=== PATIENT | male | born 1960 | race Caucasian/White ===

== ENCOUNTER 2019-04-25 17:46 | Emergency (ER) | payer MEDICAID, SELFPAY ==
[2019-04-25] VITALS (7 sets, daily range): BP systolic 106–170; BP diastolic 58–89; PULSE 77–93; RESP 16–20; TEMP 36.6–37.3; O2SAT 91–96; BMI 20.3
--- NOTE | 2019-04-25 17:53 | ED_ITS ---
Entered by Janiya Gurrola, acting as scribe for Daysi Lama MD HPI - Chest Pain General: Chief Complaint: Chest Pain Stated Complaint: CHEST PAIN Time Seen by Provider: 04/25/19 17:52 Source: patient, EMS and RN notes reviewed Mode of arrival: EMS Limitations: no limitations History of Present Illness: HPI narrative: chest pain, radiates to shoulder bl zachariah, if he lays to much it makes his shoulder hurt, when he gets up he gets dizzy, has had aortic heart valve replaced in 2019 up through groin, does not take blood thinners, hurts with movement complaint: chest pain Pertinent past history: other (CHF, ventricular fibrillation, cardiomyopathy, HTN) Onset (ago): day(s) (last night) Timing of current episode: episodic and still present Prior episodes: Yes Onset: during rest and during exertion Pain location: substernal and other (L shoulder) Pain radiation: left shoulder Severity: mild Quality: sharp Relieving factors: rest Exacerbating factors: exertion Associated symptoms: Reports no associated symptoms; Deny abdominal pain, diaphoresis, dyspnea, fever(s), nausea or vomiting Treatment prior to arrival: none Risk Factors: Coronary artery disease risk factors: hypertension Thoracic aortic dissection risk factors: none Review of Systems Const: Denies: fever, chills, change in appetite, night sweats or diaphoresis Eyes: Denies: change in vision ENMT: Denies: throat pain or ear pain Card: Denies: swelling of feet/ankles, shortness of breath on exertion or shortness of breath when lying down Resp: Denies: shortness of breath or productive cough GI: Denies: abdominal pain, nausea, vomiting, diarrhea or constipation : Denies: flank pain Musc: Denies: back pain Skin/Breast: Denies: rash Neuro: Denies: headache, numbness in extremities or weakness in extremities Psych: Denies: depression Endo: Denies: excessive thirst Kiran/Lymph: Denies: easy bruising [facility] ED PFSH: Medical History (Updated 04/25/19 @ 21:27 by Daysi Lama MD) Abnormal liver enzymes Etiology of the elevated liver enzyme is not clear. Patient has a history of alcohol abuse. Cardiomyopathy LVEF was 45% in December 2018- improved from 25% in July of 2018 Congestive heart failure Patient was recently seen by Dr. Phillip and the Atenolol dosing was decreased to 200mg daily. He has a significant cardiac history. He denies chest pain, dyspnea or other cardiac symptoms. Essential hypertension Patient is currently controlled with blood pressure medications. He continues under the care of [facility]. H/O reduction of closed fracture right wrist Influenza vaccine needed Patient is higher risk for influenza and needs vaccine. Ventricular fibrillation Because of his elevated liver enzymes, it was decided to keep him on amiodarone 200 mg p.o. daily. Vitamin D deficiency Surgical History (Updated 04/03/19 @ 05:02 by JOSE DAVID Kiran) Aortic valve replaced The most recent echocardiogram was done on 12/12/2018. The findings are as follows. Normal LV size with a diminished ejection fraction of 45%. Moderate concentric left ventricular hypertrophy. Wall motion abnormalities as mentioned above. Type I diastolic dysfunction. The bio prosthetic valve at the aortic position appears to be well-seated. The peak velocity across the aortic valve is 2.3 meter per second with a peak gradient of 22 and a mean gradient of 10 mmHg.The valve area was calculated to be 1.06 cm squared. Trace of mitral valve regurgitation. There is no pericardial effusion. H/O right wrist surgery History of aortic valve replacement Social History Smoking and tobacco status: former smoker Alcohol intake: current Alcohol intake frequency: 3 or more drinks per day Alcohol type: beer Marital status: Single Physical Exam Const: COMMON NORMALS: no apparent distress, oriented x3 and alert GENERAL APPEARANCE: cooperative and well developed; not in distress and not diaphoretic ORIENTATION/CONSCIOUSNESS: Yes awake, Yes oriented to person, Yes oriented to place and Yes oriented to time HENMT: COMMON NORMALS: normocephalic, head/scalp atraumatic, external ears normal, external nose normal and moist oral mucous membranes HEAD & SCALP: normocephalic and atraumatic FACE & SINUS: normal facial exam; no facial tenderness NOSE: external nose normal EXTERNAL EAR: Yes external ears normal MOUTH: oral and palatal mucosa normal, lip normal and tongue n ormal TEETH & GINGIVA: no abnormal tooth and associated gingiva THROAT: posterior oropharynx normal and uvula midline Eye: COMMON NORMALS: PERRL and EOMs intact bilaterally PUPIL: Yes PERRL Neck/C-Spine: COMMON NORMALS: full ROM, supple and no JVD GENERAL: Yes normal visual inspection and Yes trachea midline CERVICAL SPINE: No cervical spine tenderness Lymph: LYMPHATIC: no lymphadenopathy noted Chest: COMMONS NORMALS: inspection of chest normal Resp: COMMON NORMALS: normal respiratory effort, no use of accessory muscles and clear to auscultation bilaterally EFFORT & INSPECTION: Yes able to speak in complete sentences and Yes symmetric chest movement AUSCULTATION: clear to auscultation bilaterally Cardio: COMMON NORMALS: no JVD, regular rate, regular rhythm, no gallops and peripheral pulses 2+ throughout RATE: regular rate RHYTHM: regular rhythm HEART SOUNDS: murmur systolic (2/6) Location: left sternal border and right sternal border PERIPHERAL PULSES: pulses 2+ throughout GI: COMMON NORMALS: normal to inspection, nondistended, normoactive bowel sounds, soft to palpation and non-tender PALPATION: Yes soft Back/Pelvis: COMMON NORMALS: thoracic and lumbar spine normal to inspection and thoraco-lumbar ROM normal Extremity: COMMON NORMALS: normal to inspection, full ROM and normal capillary refill Neuro: COMMON NORMALS: oriented x3, CN's II-XII intact bilaterally, moves all extremities, no focal motor deficits and no sensory deficits noted SENSORIUM/ORIENTATION: Yes alert, Yes oriented to person, Yes oriented to place and Yes oriented to time Psych: COMMON NORMALS: mental status grossly normal, thought process normal, cooperative, affect normal, speech normal and activity/motor behavior normal SPEECH: Yes normal speech THOUGHT PROCESS: normal thought process Skin: COMMON NORMALS: no rashes or lesions noted and skin turgor normal GENERAL SKIN EXAM: no rashes or lesions noted and turgor normal Course ED course: Patient with aortic valve replacement recently. CT angio for aorta was positive for dilated aorta and aortic root - but no sign of dissection. EKGs unchanged from prior. Delta troponin neg. Probably musculoskeletal pain and shoulder pain - he seems safe for discharge and outpatient [facility]. Vital Signs: Vital signs: Vital Signs Temperature 99.1 F 04/25/19 20:00 Pulse Rate 81 04/25/19 21:30 Respiratory Rate 16 04/25/19 21:30 Blood Pressure 106/89 04/25/19 21:30 Pulse Oximetry 93 04/25/19 21:30 MDM - Chest Pain Lab Data: Labs: Lab Results 04/25/19 04/25/19 04/25/19 Range/Units 18:20 18:20 18:20 WBC 6.4 (4.0-10.0) 10^3/ uL RBC 4.83 (4.1-5.3) 10^6/u L Hgb 13.4 (11.7-16.6) g/dL Hct 39.5 L (42.0-52.0) % MCV 81.8 (80-94) fL MCH 27.7 L (28.0-34.0) pg MCHC 33.9 (30.0-36.0) g/dL RDW 15.3 H (12.1-15.1) % Plt Count 109 L (130-400) 10^3/c mm MPV 9.9 (7.4-10.4) fL Neut % (Auto) 63.5 % Lymph % (Auto) 25.5 % [place] % (Auto) 10.6 % Eos % (Auto) 0.2 % Baso % (Auto) 0.0 % Neut # (Auto) 4.1 (1.8-7.7) 10^3/u L Lymph # (Auto) 1.6 (0.8-4.8) 10^3/u L [place] # (Auto) 0.7 (0.2-0.9) 10^3/u L Eos # (Auto) 0.0 (0.0-0.8) 10^3/u L Baso # (Auto) 0.0 (0.0-0.1) 10^3/u L Nucleated RBC % (a uto) 0 % Nucleated RBCs # 0.0 /100WBC PT 13.50 H (10.5-13.3) SECO NDS INR 1.00 (0.8-1.2) Sodium 131 L (136-145) mmol/L Potassium 4.0 (3.5-5.1) mmol/L Chloride 94 L (98-107) mmol/L Carbon Dioxide 24 (22-29) mmol/L Anion Gap 17.0 (5-19) BUN 13 (6-20) mg/dL Creatinine 0.9 (0.7-1.2) mg/dL GFR Calculation 86.4 L (90-130) mL/min Glucose 96 (65-115) mg/dL Calcium 9.4 (8.5-10.5) mg/dL Total Bilirubin 0.6 (0.15-1.2) mg/dL AST 81 H (0-40) U/L ALT 86 H (0-41) U/L Alkaline Phosphata se 109 (40-130) IU/L Troponin T Baselin e (0-15) ng/mL Troponin T 120 Min [place] (0-15) ng/mL Delta Troponin T (0-10) ABS# NT-Pro-B Natriuret Pep 235 H (0-125) pg/mL Total Protein 8.1 (6.6-8.7) g/dL Albumin 4.2 (3.5-5.2) g/dL Globulin 3.9 (1.3-4.6) g/dL Urine Color (Yellow) Urine Appearance (CLEAR) Urine pH (5-7) Ur Specific Gravit y (1.005-1.030) Urine Protein (Negative) Urine Glucose (UA) (Normal) Urine Ketones (Negative) Urine Occult Blood (Negative) Urine Nitrate (Negative) Urine Bilirubin (NEGATIVE) Urine Urobilinogen (Negative) mg/dL Ur Leukocyte Yee ase (Negative) 04/25/19 04/25/19 04/25/19 Range/Units 18:20 18:35 19:48 WBC (4.0-10.0) 10^3/ uL RBC (4.1-5.3) 10^6/u L Hgb (11.7-16.6) g/dL Hct (42.0-52.0) % MCV (80-94) fL MCH (28.0-34.0) pg MCHC (30.0-36.0) g/dL RDW (12.1-15.1) % Plt Count (130-400) 10^3/c mm MPV (7.4-10.4) fL Neut % (Auto) % Lymph % (Auto) % [place] % (Auto) % Eos % (Auto) % Baso % (Auto) % Neut # (Auto) (1.8-7.7) 10^3/u L Lymph # (Auto) (0.8-4.8) 10^3/u L [place] # (Auto) (0.2-0.9) 10^3/u L Eos # (Auto) (0.0-0.8) 10^3/u L Baso # (Auto) (0.0-0.1) 10^3/u L Nucleated RBC % (a uto) % Nucleated RBCs # /100WBC PT (10.5-13.3) SECO NDS INR (0.8-1.2) Sodium (136-145) mmol/L Potassium (3.5-5.1) mmol/L Chloride (98-107) mmol/L Carbon Dioxide (22-29) mmol/L Anion Gap (5-19) BUN (6-20) mg/dL Creatinine (0.7-1.2) mg/dL GFR Calculation (90-130) mL/min Glucose (65-115) mg/dL Calcium (8.5-10.5) mg/dL Total Bilirubin (0.15-1.2) mg/dL AST (0-40) U/L ALT (0-41) U/L Alkaline Phosphata se (40-130) IU/L Troponin T Baselin e 8 (0-15) ng/mL Troponin T 120 Min [place] 8.38 (0-15) ng/mL Delta Troponin T 0.38 (0-10) ABS# NT-Pro-B Natriuret Pep (0-125) pg/mL Total Protein (6.6-8.7) g/dL Albumin (3.5-5.2) g/dL Globulin (1.3-4.6) g/dL Urine Color Yellow (Yellow) Urine Appearance Clear (CLEAR) Urine pH 7 (5-7) Ur Specific Gravit y 1.000 L (1.005-1.030) Urine Protein Neg (Negative) Urine Glucose (UA) Norm (Normal) Urine Ketones Negative (Negative) Urine Occult Blood Neg (Negative) Urine Nitrate Negative (Negative) Urine Bilirubin Neg (NEGATIVE) Urine Urobilinogen Norm (Negative) mg/dL Ur Leukocyte Yee ase Negative (Negative) Imaging Data^: CTA Chest: Radiologist's impression: [address] [address] [address] Scan Report Signed Patient: Manuel Moreno Jimi #: [id number] : 1960Acct#:[id number] Age/Sex: 59 / MADM Date: 04/25/19 Loc: [facility]/Bed: Attending Dr: Ordering Provider/Ordering MD: Daysi Lama MD Date of Service: 04/25/19 Procedure(s): CT angio chest 18297 Accession Number(s): [id number] Report Number: [id number] PROCEDURE INFORMATION: Exam: CT Angiography Chest Without And With Contrast Exam date and time: 04/25/2019 7:42 PM Age: 59 years old Clinical indication: Prior surgery; Surgery date: 6+ months; Surgery type: Valve; Patient HX: C/O intermittent back/l shoulder pain since last night; Additional info: History of aortic valve replaced, upper back pain TECHNIQUE: Imaging protocol: Computed tomographic angiography of the chest without and with intravenous contrast. 3D rendering: MIP and/or 3D reconstructed images were created by the technologist. Total DLP: 889.7 mGy-cm Radiation optimization: All CT scans at this facility use at least one of these dose optimization techniques: automated exposure control; mA and/or kV adjustment per patient size (includes targeted exams where dose is matched to clinical indication); or iterative reconstruction. Contrast material: OMNI 350; Contrast volume: 95 ml; Contrast route: 18G; COMPARISON: CR XR chest 1V portable [id number] 04/25/2019 6:08 PM FINDINGS: Pulmonary arteries: Normal. No pulmonary emboli. Great vessels off aortic arch: Calcification of the thoracic aorta and/or great vessels consistent with atherosclerotic vessel disease. Aorta: 4.2 cm ascending aortic aneurysm without rupture. Dilated 4.9 cm aortic root with aortic valve replacement. Aortic diameters are measured on the coronal images. CTA with contrast is more sensitive for subtle aortic leak/dissection. Lungs: Unremarkable. No consolidation. No masses. Pleural space: Unremarkable. No pneumothorax. No pleural effusion. Heart: Severe calcified coronary artery disease. Lymph nodes: Unremarkable. No enlarged lymph nodes. Bones/joints: Stable sternotomy. Soft tissues: Unremarkable. CT/CT angio chest [id number] IMPRESSION: 1. 4.2 cm ascending aortic aneurysm without rupture. 2. Dilated 4.9 cm aortic root with aortic valve replacement. 3. CTA with contrast is more sensitive for subtle aortic leak/dissection. 4. Severe calcified coronary artery disease. Radiation Dose CTDIVOL = (mGy): DLP = 889.7 (mGy-cm) Dictated By:Celestino Avelar MD Signed By:Celestino Avelar MDSigned Date/Time:04/25/192046 DD/ EKG Data^: EKG 1: EKG interpretation date: 04/25/19 EKG interpretation time: 18:02 Interpretation: Rate 76, sinus rhythm - IVCD with QRS 114, ST deviation, and T wave inversion - very similar to recent prior from january Discharge Plan Discharge Patient Disposition: Home, Self-Care Clinical Impression: Acute left-sided thoracic back pain, Aortic dilatation Condition: Stable Prescriptions: No Action nitroglycerin [Nitrostat] 0.4 mg tablet, sublingual 0.4 mg SUBLINGUAL Q5M PRNRF: 0 aspirin 81 mg tablet,delayed release (DR/EC) 81 mg PO DAILY RF: 0 amiodarone 200 mg tablet 200 mg PO DAILY 30 Days Qty: 30 RF: 5 potassium chloride [Klor-Con M20] 20 mEq tablet,ER particles/crystals 20 meq PO DAILY 30 Days Qty: 30 RF: 0 magnesium oxide 500 mg tablet 400 mg PO BID 30 Days Qty: 30 RF: 5 lisinopril 5 mg tablet 5 mg PO QDAY 30 Days Qty: 30 RF: 5 amlodipine 10 mg tablet 10 mg PO DAILY 30 Days Qty: 30 RF: 5 furosemide [Lasix] 40 mg tablet 20 mg PO BID 30 Days Qty: 30 RF: 0 Discharge Orders: Discharge Order (Routine); Ordered 04/25/19 Ordered By: Daysi Lama Referrals: Aziza Bob, CANDY POLISHER [Primary Care Provider] - Patient Instructions: Back Pain (ED) Activity Restrictions/Additional Instructions: Please follow up with Dr. Phillip to make sure that he has seen the CT results from [facility]. Rest and return to the ED if worsening back pain, chest pain, shortness of breath or any other new or concerning symptoms. Interventions: ED Discharge Assessment Last Done: 04/25/19 21:39 Discharge Date/Time: 04/25/19 21:39 Coding Level of Care Code ED Women'S Soccer Coach for Chg Fwd Exam Comprehensive The documentation recorded by the Galileo richter Valerie R, accurately reflects the service I personally performed and the decisions made by Daina back Kathryn L, MD
--- NOTE | 2019-04-25 17:58 | ECG_ITS ---
Measurements Intervals [place] Rate: 76 P: 1 DE: 180 QRS: -15 QRSD: 114 T: 140 QT: 384 QTc: 434 SINUS RHYTHM MODERATE INTRAVENTRICULAR CONDUCTION DELAY [110+ ms QRS DURATION] ST DEVIATION AND MODERATE T-WAVE ABNORMALITY, CONSIDER LATERAL ISCHEMIA [-0.1+ mV T WAVE IN I/aVL/V5/V6] INTERPRETATION BASED ON A DEFAULT AGE OF 40 YEARS Compared to ECG 02/05/2019 17:31:30 There is significant change. Electronically Signed On 04-25-2019 20:49:20 LATIN AMERICAN STUDIES PROFESSOR by Akosua Lo M.D. [email or web address]
--- NOTE | 2019-04-25 17:58 | XR_ITS ---
WS: [id number] XR chest 1V portable [id number] REASON FOR EXAM: chest pain FINDINGS: Previous sternotomy changes. The heart is not grossly enlarged. There is no pneumonia, pleural effusion, pulmonary edema, or mass effect. XR/XR chest 1V portable [id number] IMPRESSION: No acute findings. Previous sternotomy changes.
[2019-04-25 18:34] LABS: Eosinophils % 0.2 %; Hematocrit 39.5 % (42.0-52.0); Hemoglobin 13.4 g/dL (11.7-16.6); Lymphocytes # 1.6 10^3/uL (0.8-4.8); Lymphocytes % 25.5 %; Mean Corpuscular HGB Conc 33.9 g/dL (30.0-36.0); Mean Corpuscular Hemoglobin 27.7 pg (28.0-34.0); Mean Corpuscular Volume 81.8 fL (80-94); Mean Platelet Volume 9.9 fL (7.4-10.4); Monocytes # 0.7 10^3/uL (0.2-0.9); Monocytes % 10.6 %; Neutrophils # 4.1 10^3/uL (1.8-7.7); Neutrophils % 63.5 %; Nucleated Red Blood Cells % 0 %; Platelet Count 109 10^3/cmm (130-400); Red Blood Count 4.83 10^6/uL (4.1-5.3); Red Cell Distribution Width 15.3 % (12.1-15.1); White Blood Count 6.4 10^3/uL (4.0-10.0)
[2019-04-25 18:46] LABS: Add Urine Microscopic? NO
[2019-04-25 18:54] LABS: Bilirubin Urine Neg (NEGATIVE); Blood Urine Neg (Negative); Glucose Urine UA Norm (Normal); Ketones Urine Negative (Negative); Leukocyte Esterase Urine Negative (Negative); Nitrate Urine Negative (Negative); Protein Urine Neg (Negative); Urine Appearance Clear (CLEAR); Urine Color Yellow (Yellow); Urobilinogen Urine Norm (Negative); pH Urine 7 (5-7)
[2019-04-25 19:00] LABS: Troponin(5th) Baseline 8 ng/mL (0-15)
[2019-04-25 19:08] LABS: Alanine Aminotransferase 86 U/L (0-41); Albumin Level 4.2 g/dL (3.5-5.2); Alkaline Phosphatase 109 IU/L (40-130); Aspartate Amino Transferase 81 U/L (0-40); Blood Urea Nitrogen 13 mg/dL (6-20); Calcium 9.4 mg/dL (8.5-10.5); Carbon Dioxide 24 mmol/L (22-29); Chloride 94 mmol/L (98-107); Globulin 3.9 g/dL (1.3-4.6); Glomerular Filtration Rate 86.4 mL/min (90-130); Glucose 96 mg/dL (65-115); NT Pro B Type Natriuretic Pept 235 pg/mL (0-125); Sodium 131 mmol/L (136-145); Total Bilirubin 0.6 mg/dL (0.15-1.2); Total Protein 8.1 g/dL (6.6-8.7)
--- NOTE | 2019-04-25 19:08 | PC.NURSE ---
Introduced self to patient and initiated vital signs. Pt is A&O x 4 and agreeable. Pt states that the reason for the ER visit today is due to left shoulder pain. Pt states that at present, shoulder pain in 1/10, but has 5/10 left shoulder blade pain. Pt states that pain presented last night and progressed over the night. Reassured patient of needs and will continue to monitor.
--- NOTE | 2019-04-25 19:26 | CTR_ITS ---
PROCEDURE INFORMATION: Exam: CT Angiography Chest Without And With Contrast Exam date and time: 04/25/2019 7:42 PM Age: 59 years old Clinical indication: Prior surgery; Surgery date: 6+ months; Surgery type: Valve; Patient HX: C/O intermittent back/l shoulder pain since last night; Additional info: History of aortic valve replaced, upper back pain TECHNIQUE: Imaging protocol: Computed tomographic angiography of the chest without and with intravenous contrast. 3D rendering: MIP and/or 3D reconstructed images were created by the technologist. Total DLP: 889.7 mGy-cm Radiation optimization: All CT scans at this facility use at least one of these dose optimization techniques: automated exposure control; mA and/or kV adjustment per patient size (includes targeted exams where dose is matched to clinical indication); or iterative reconstruction. Contrast material: OMNI 350; Contrast volume: 95 ml; Contrast route: 18G; COMPARISON: [employer] XR chest 1V portable [id number] 04/25/2019 6:08 PM FINDINGS: Pulmonary arteries: Normal. No pulmonary emboli. Great vessels off aortic arch: Calcification of the thoracic aorta and/or great vessels consistent with atherosclerotic vessel disease. Aorta: 4.2 cm ascending aortic aneurysm without rupture. Dilated 4.9 cm aortic root with aortic valve replacement. Aortic diameters are measured on the coronal images. CTA with contrast is more sensitive for subtle aortic leak/dissection. Lungs: Unremarkable. No consolidation. No masses. Pleural space: Unremarkable. No pneumothorax. No pleural effusion. Heart: Severe calcified coronary artery disease. Lymph nodes: Unremarkable. No enlarged lymph nodes. Bones/joints: Stable sternotomy. Soft tissues: Unremarkable. CT/CT angio chest [id number] IMPRESSION: 1. 4.2 cm ascending aortic aneurysm without rupture. 2. Dilated 4.9 cm aortic root with aortic valve replacement. 3. CTA with contrast is more sensitive for subtle aortic leak/dissection. 4. Severe calcified coronary artery disease. Radiation Dose CTDIVOL = (mGy): DLP = 889.7 (mGy-cm)
--- NOTE | 2019-04-25 19:58 | ECG_ITS ---
Measurements Intervals [place] Rate: 82 P: 26 NV: 202 QRS: -5 QRSD: 114 T: 156 QT: 378 QTc: 442 SINUS RHYTHM MODERATE INTRAVENTRICULAR CONDUCTION DELAY [110+ ms QRS DURATION] ST DEVIATION AND MODERATE T-WAVE ABNORMALITY, CONSIDER LATERAL ISCHEMIA [-0.1+ mV T WAVE IN I/aVL/V5/V6] INTERPRETATION BASED ON A DEFAULT AGE OF 40 YEARS Compared to ECG 02/05/2019 17:31:30 Intraventricular conduction delay now present T-wave abnormality now present Possible ischemia now present Left ventricular hypertrophy no longer present ST (T wave) deviation no longer present Myocardial infarct finding no longer present Electronically Signed On 04-25-2019 20:52:27 INTERNAL CARVER by Akosua Lo M.D. [email or web address]
[2019-04-25] MEDS: iohexol 350 mg/mL 100 mL Btl IV (20:27)
[2019-04-25 20:41] LABS: Troponin 5 2HR 8.38 ng/mL (0-15); Troponin 5 2HR Delta 0.38 ABS# (0-10)
--- NOTE | 2019-04-30 10:50 | DCPLANNER ---
assistant food service manager had message to schedule a follow up appointment for patient with [facility]. assistant food service manager called [facility], spoke with Keli, a followup appointment was scheduled for Monday, May 13, 2019 at 10:[address] Phillip. Clinic will call patient with appointment information.
--- NOTE | 2019-05-20 14:51 | DCPLANNER ---
Patient attended appointment scheduled for 05.13.19 with [facility].
== END 2019-04-25 21:39 | disposition home or self-care (01) ==
PROVIDERS: Emergency Provider Emergency Medicine; Family Provider Nurse Practitioner Family; PCP Nurse Practitioner Family
DX: M54.6 Pain in thoracic spine (principal); I77.819 Aortic ectasia, unspecified site; I50.9 Heart failure, unspecified; I49.01 Ventricular fibrillation; I42.9 Cardiomyopathy, unspecified; I10 Essential (primary) hypertension; Z95.2 Presence of prosthetic heart valve; Z87.891 Personal history of nicotine dependence
CPT/HCPCS: 71045; 71275; 80053; 81003; 83880; 84484; 85025; 85610; 93005; 99283; 99284; Q9967

== ENCOUNTER → 2019-07-25 10:26 | Outpatient (BNVA) | payer MEDICAID, SELFPAY | PROVIDERS: Family Provider Nurse Practitioner Family; PCP Nurse Practitioner Family; Visit Provider Nurse Practitioner Family | DX: I10 Essential (primary) hypertension (principal); R53.83 Other fatigue; D64.9 Anemia, unspecified; E11.69 Type 2 diabetes mellitus with other specified complication; E78.5 Hyperlipidemia, unspecified; I49.01 Ventricular fibrillation | CPT/HCPCS: 36415; 80053; 80061; 83540; 83735; 84443; 85025 ==

== ENCOUNTER → 2019-08-25 11:41 | Outpatient (BNVA) | payer MEDICAID, SELFPAY | PROVIDERS: Family Provider Nurse Practitioner Family; PCP Nurse Practitioner Family; Visit Provider Nurse Practitioner Family | DX: R79.89 Other specified abnormal findings of blood chemistry (principal) | CPT/HCPCS: 84443 ==

== ENCOUNTER 2019-09-04 10:09 | Outpatient (CLI) | payer MEDICAID, SELFPAY ==
[2019-09-04] MEDS: iohexol 350 mg/mL 100 mL Btl IV (10:34)
--- NOTE | 2019-09-04 11:00 | CT_ITS ---
WS: [id number] CTA THORACIC TECHNIQUE: Contrast enhanced CTA of the thoracic aorta with coronal and sagittal reformatted images a nd maximum intensity projection (MIP) images. CLINICAL INFORMATION: aortic aneurysm COMPARISON: CTA chest April 25, 2019 DLP: 1382.[address] scans at [facility] use at least one of these dose optimization techniques: automat ed exposure control; mA and/or kV adjustment per patient size (includes targeted exams where dose is matched to clinical indication); or iterative reconstruction. FINDINGS: Again seen is the ascending thoracic aortic aneurysm measuring 4.2 cm unchanged from previous. Dilate d aortic root measuring 4.9 cm with prior aVR is unchanged. Normal descending thoracic aorta. Moderat e atheromatous disease with coronary calcification. Prior sternotomy. No mediastinal or hilar lymphadenopathy. No axillary lymphadenopathy. Small esophag eal hiatal hernia. Adrenal glands are normal. Fatty atrophy of the pancreas. No acute pulmonary infiltrates. Lungs well aerated. No pleural fluid. CT/CT angio chest [id number] IMPRESSION: 1. Stable ascending thoracic aortic aneurysm measuring 4.2 CM. 2. Stable dilatation of the aortic root measuring 4.9 cm with prior aVR. 3. Moderate aortic atheromatous disease. Coronary calcification. 4. Lungs are well aerated.
== END 2019-09-04 10:10 | disposition home or self-care (01) ==
LOC: RADWPI 10:12
PROVIDERS: Family Provider Nurse Practitioner Family; PCP Nurse Practitioner Family; Visit Provider Internal Medicine Cardiovascular Disease
DX: I71.2 Thoracic aortic aneurysm, without rupture (principal); I25.10 Atherosclerotic heart disease of native coronary artery without angina pectoris
CPT/HCPCS: 71275; Q9967

== ENCOUNTER → 2019-10-02 11:55 | Outpatient (BNVA) | payer MEDICAID, SELFPAY | PROVIDERS: Family Provider Nurse Practitioner Family; PCP Nurse Practitioner Family; Visit Provider Nurse Practitioner Family | DX: E03.9 Hypothyroidism, unspecified (principal) | CPT/HCPCS: 84443 ==

== ENCOUNTER → 2019-11-13 09:26 | Outpatient (BNVA) | payer MEDICAID, SELFPAY | PROVIDERS: Family Provider Nurse Practitioner Family; PCP Nurse Practitioner Family; Visit Provider Nurse Practitioner Family | DX: I10 Essential (primary) hypertension (principal); E03.9 Hypothyroidism, unspecified; Z79.899 Other long term (current) drug therapy | CPT/HCPCS: 80053; 81003; 83036; 84443; 85025 ==

== ENCOUNTER 2019-12-30 13:29 | Outpatient (CLI) | payer MEDICAID, SELFPAY ==
--- NOTE | 2019-12-30 14:15 | USCV_ITS ---
Manuel Moreno Age: 59 Gender: M : 1960 Exam Date: 12/30/2019 13:37 Ordering Phys: Dave Phillip MD ([email or web address]) Technologist: Rosina Gifford Exam Location: [facility] [place] Indication: Z95.0 BP: / HR: Rhythm: Sinus Technical Quality: Adequate MEASUREMENTS (Male / Female) Normal Values 2D ECHO LV Diastolic Diameter PLAX 3.2 cm 4.2 - 5.9 / 3.9 - 5.3 cm LV Systolic Diameter PLAX 3.1 cm LV Chamber Size 3.8 cm IVS Diastolic Thickness 1.9 cm 0.6 - 1.0 / 0.6 - 0.9 cm IVS Systolic Thickness 2.1 cm LVPW Diastolic Thickness 2.3 cm 0.6 - 1.0 / 0.6 - 0.9 cm LVPW Systolic Thickness 1.9 cm RV Chamber Size 2.1 cm LVOT Diameter 2.0 cm LV Ejection Fraction 2D Teich 5.4 % LV Ejection Fraction MOD 2C 47.4 % LV Ejection Fraction 2C AL 45.2 % LA Diameter 2.9 cm LA Width 3.2 cm LA Height 3.4 cm Aorta at Sinotubular Diameter 3.7 cm M-MODE LV Diastolic Diameter MM 5.5 cm 4.2 - 5.9 / 3.9 - 5.3 cm LV Systolic Diameter MM 3.4 cm LV Ejection Fraction MM Teich 69.1 % IVS Diastolic Thickness MM 0.9 cm 0.6 - 1.0 / 0.6 - 0.9 cm IVS Systolic Thickness MM 1.2 cm LVPW Diastolic Thickness MM 0.8 cm 0.6 - 1.0 / 0.6 - 0.9 cm LVPW Systolic Thickness MM 1.6 cm Aortic Annulus Diameter 5.1 cm LA Ao Ratio MM 0.7 MV E Point Septal Separation 1.2 cm DOPPLER AV Peak Velocity 178.0 cm/s LVOT Peak Velocity 74.0 cm/s AV Area Cont Eq vti 1.5 cm squared AV Area Cont Eq pk 1.4 cm squared TR Peak Velocity 196.5 cm/s TR Peak Gradient 15.4 mmHg TV Peak E Velocity 82.0 cm/s Right Atrial Pressure 3.0 mmHg Pulmonary Artery Systolic Pressu 18.4 mmHg PV Peak Velocity 61.0 cm/s RV Acceleration Time 0.1 s RV Ejection Time 0.3 s RV AcT/ET 0.4 FINDINGS Left Ventricle Normal left ventricular size and systolic function, EF 55 %. Moderate left ventricular hypertrophy. Right Ventricle Normal right ventricular size and systolic function. Right Atrium Normal right atrial size. Left Atrium Normal left atrial size. Mitral Valve Thickened mitral valve. Aortic Valve The bioprosthetic valve at the aortic position appears to be well-seated. Peak velocity of 1.7 m/s Tricuspid Valve No gross abnormalities noted Pulmonic Valve No gross abnormalities noted Pericardium No pericardial effusion. Aorta Dilated aortic root,( composite graft) measuring 4.67 cm maximum diameter CONCLUSIONS Normal left ventricular size and systolic function, EF 55 %. Moderate left ventricular hypertrophy. The bioprosthetic valve at the aortic position appears to be well-seated. Peak velocity of 1.7 m/s. The peak gradient of 22 with a mean gradient of 10 mmHg Dilated aortic root,( composite graft) measuring 4.67 cm maximum diameter. There is no pericardial effusion. There are no intracardiac masses. Compared to the previous study from 12/12/2018, the gradient across the bioprosthetic aortic valve appears to be less Dr Dave Phillip MD [facility] (Electronically Signed) Final Date: 30 December 2019 20:59 S
== END 2019-12-30 13:30 | disposition home or self-care (01) ==
LOC: RAD 13:30
PROVIDERS: Family Provider Nurse Practitioner Family; PCP Nurse Practitioner Family; Visit Provider Internal Medicine Cardiovascular Disease
DX: Z95.2 Presence of prosthetic heart valve (principal)
CPT/HCPCS: 93306

== ENCOUNTER → 2020-01-07 11:58 | Outpatient (BNVA) | payer MEDICAID, SELFPAY | PROVIDERS: Family Provider Nurse Practitioner Family; PCP Nurse Practitioner Family; Visit Provider Nurse Practitioner Family | DX: I10 Essential (primary) hypertension (principal); E03.9 Hypothyroidism, unspecified; N18.30 Chronic kidney disease, stage 3 unspecified | CPT/HCPCS: 80053; 81003; 83735; 84100; 84443; 85025 ==

== ENCOUNTER → 2020-02-12 12:05 | Outpatient (BNVA) | payer MEDICAID, SELFPAY | PROVIDERS: Family Provider Nurse Practitioner Family; PCP Nurse Practitioner Family; Visit Provider Family Medicine | DX: I71.2 Thoracic aortic aneurysm, without rupture (principal); E03.9 Hypothyroidism, unspecified; T46.2X1A Poisoning by other antidysrhythmic drugs, accidental (unintentional), initial encounter; E03.2 Hypothyroidism due to medicaments and other exogenous substances; I49.01 Ventricular fibrillation; Z95.2 Presence of prosthetic heart valve; I10 Essential (primary) hypertension; I50.82 Biventricular heart failure; E87.6 Hypokalemia; I51.7 Cardiomegaly | CPT/HCPCS: 36415; 80053; 83516; 83735; 84100; 84443; 84481; 86376; 86800 ==

== ENCOUNTER → 2020-04-22 10:19 | Outpatient (BNVA) | payer MEDICAID, SELFPAY | PROVIDERS: Family Provider Nurse Practitioner Family; PCP Nurse Practitioner Family; Visit Provider Nurse Practitioner Family | DX: T46.2X1A Poisoning by other antidysrhythmic drugs, accidental (unintentional), initial encounter (principal); E03.2 Hypothyroidism due to medicaments and other exogenous substances; X58.XXXA Exposure to other specified factors, initial encounter | CPT/HCPCS: 84439; 84443 ==

== ENCOUNTER → 2020-11-29 00:01 | Outpatient (BNVA) | payer MEDICAID, SELFPAY | PROVIDERS: Family Provider Nurse Practitioner Family; PCP Nurse Practitioner Family; Visit Provider Nurse Practitioner Family | DX: D64.9 Anemia, unspecified (principal); N18.30 Chronic kidney disease, stage 3 unspecified | CPT/HCPCS: 80053; 84443; 85025; G0103 ==

== ENCOUNTER 2021-03-02 15:01 | Outpatient (CLI) | payer MEDICARE, MEDICAID, SELFPAY ==
--- NOTE | 2021-03-02 15:00 | USCV_ITS ---
Manuel Moreno Age: 61 Gender: M : 1960 Exam Date: 03/02/2021 15:28 Ordering Phys: Shira Lentz Technologist: Andrés Padilla [place] [facility] [place]: MV REPAIR BP: 132 / 74 HR: 82 Rhythm: Sinus Technical Quality: Adequate MEASUREMENTS (Male / Female) Normal Values 2D ECHO LV Diastolic Diameter PLAX 2.9 cm 4.2 - 5.9 / 3.9 - 5.3 cm LV Systolic Diameter PLAX 2.0 cm IVS Diastolic Thickness 1.4 cm 0.6 - 1.0 / 0.6 - 0.9 cm IVS Systolic Thickness 1.4 cm LVPW Diastolic Thickness 1.2 cm 0.6 - 1.0 / 0.6 - 0.9 cm LVPW Systolic Thickness 1.4 cm LVOT Diameter 2.0 cm LV Ejection Fraction 2D Teich 61.9 % LV Ejection Fraction MOD 2C 75.3 % LV Ejection Fraction 2C AL 73.4 % LA Diameter 3.7 cm LA Width 4.3 cm LA Height 4.5 cm RA Width 4.0 cm RA Height 4.3 cm M-MODE MV E Point Septal Separation 1.2 cm DOPPLER AV Peak Velocity 246.7 cm/s LVOT Peak Velocity 95.0 cm/s AV Area Cont Eq vti 1.2 cm squared AV Area Cont Eq pk 1.3 cm squared MV Area PHT 5.0 cm squared Mitral E to A Ratio 0.7 MV E' Velocity 36.5 cm/s Mitral E to MV E' Ratio 4.9 Mitral E to LV E' Lateral Ratio 4.1 Mitral E to LV E' Septal Ratio 6.3 TR Peak Velocity 213.7 cm/s TR Peak Gradient 18.3 mmHg TV Peak E Velocity 78.0 cm/s Right Atrial Pressure 3.0 mmHg Pulmonary Artery Systolic Pressu 21.3 mmHg FINDINGS Left Ventricle Normal left ventricular size. LV systolic function is normal with EF of 50-55%. No regional wall motion abnormalities. Grade 1 diastolic dysfunction Right Ventricle The right ventricle is normal in size and function. Right Atrium The right atrium is normal in size. Left Atrium The left atrium is normal in size. Mitral Valve Mitral valve is thickened. No significant regurgitation or stenosis is seen Aortic Valve Bioprosthetic aortic valve is seen. DVI is 0.37. Mildly increased gradient across the aortic valve of 12.5 mmHg Tricuspid Valve Structurally normal tricuspid valve without significant stenosis. Trace tricuspid regurgitation. Pulmonary artery systolic pressure is normal. Pulmonic Valve Structurally normal pulmonic valve without significant stenosis. There is mild to moderate pulmonic regurgitation. Pericardium Normal pericardium without effusion. Aorta Dilated aortic root and ascending aorta measuring 4.63cm CONCLUSIONS LV systolic function is normal with EF of 50-55% Grade 1 diastolic dysfunction Normally functioning Bioprosthetic aortic valve is seen. DVI is 0.37. Mildly increased gradient across the aortic valve of 12.5 mmHg Trace tricuspid regurgitation Dilated aortic root measuring 4.63cm. Mild to moderate pulmonic regurgitation Compared to prior echocardiogram from 12/30/19, no significant changes are noted Soy Vicente MD (Electronically Signed) Final Date: 06 March 2021 17:42 S
== END 2021-03-02 15:02 | disposition home or self-care (01) ==
LOC: RAD 15:09
PROVIDERS: PCP Nurse Practitioner Family; Visit Provider Nurse Practitioner Family
DX: Z95.2 Presence of prosthetic heart valve (principal); I71.2 Thoracic aortic aneurysm, without rupture; I42.8 Other cardiomyopathies; I07.1 Rheumatic tricuspid insufficiency
CPT/HCPCS: 93306

== ENCOUNTER → 2021-07-04 12:53 | Outpatient (BNVA) | payer MEDICARE, MEDICAID, SELFPAY | PROVIDERS: PCP Nurse Practitioner Family; Visit Provider Nurse Practitioner Family | DX: I11.0 Hypertensive heart disease with heart failure (principal); I50.9 Heart failure, unspecified; I48.91 Unspecified atrial fibrillation; I42.8 Other cardiomyopathies; Z87.891 Personal history of nicotine dependence | CPT/HCPCS: 99214 ==

== ENCOUNTER → 2023-03-20 11:21 | Outpatient (BNVA) | payer MEDICARE, MEDICAID, SELFPAY | PROVIDERS: PCP Nurse Practitioner Family; Visit Provider Nurse Practitioner Family | DX: Z79.899 Other long term (current) drug therapy (principal); I50.9 Heart failure, unspecified; E78.2 Mixed hyperlipidemia; E03.9 Hypothyroidism, unspecified; E87.6 Hypokalemia; I11.0 Hypertensive heart disease with heart failure | CPT/HCPCS: 80053; 80061; 81003; 83036; 84443; 85025; G0103 ==

== ENCOUNTER → 2023-05-09 15:35 | Outpatient (BNVA) | payer MEDICARE, MEDICAID, SELFPAY | PROVIDERS: PCP Nurse Practitioner Family; Visit Provider Internal Medicine Cardiovascular Disease | DX: I11.0 Hypertensive heart disease with heart failure (principal); I50.82 Biventricular heart failure; Z95.2 Presence of prosthetic heart valve; I42.8 Other cardiomyopathies; E78.2 Mixed hyperlipidemia; I48.91 Unspecified atrial fibrillation; Z87.891 Personal history of nicotine dependence | CPT/HCPCS: 99214 ==

== ENCOUNTER 2023-05-20 22:54 | Emergency (ER) | payer MEDICARE, MEDICAID, SELFPAY ==
--- NOTE | 2023-05-20 22:04 | ECG_ITS ---
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 Measurements Intervals [place] Rate: 57 P: 9 NH: 225 QRS: -24 QRSD: 122 T: 244 QT: 503 QTc: 491 Interpretive Statements SINUS BRADYCARDIA WITH FIRST DEGREE AV BLOCK BORDERLINE LEFT AXIS DEVIATION [QRS AXIS < -20] MODERATE INTRAVENTRICULAR CONDUCTION DELAY [110+ ms QRS DURATION] ST DEVIATION AND MODERATE T-WAVE ABNORMALITY, CONSIDER ANTEROLATERAL ISCHEMIA [-0.1+ mV T-WAVE IN V3-V6] ST DEVIATION AND MODERATE T-WAVE ABNORMALITY, CONSIDER INFERIOR ISCHEMIA [-0.1+ mV T-WAVE IN II/aVF] Compared to ECG 04/25/2019 20:04:14 First degree AV block now present Sinus rhythm no longer present T-wave abnormality still present Possible ischemia still present Electronically Signed On 05-21-2023 14:19:35 CDT by Kit Colvin M.D. [id number] radha
[2023-05-20 22:54] VITALS: BP 101/63; PULSE 57; RESP 16; TEMP 36.6; O2SAT 97; BMI 23.7
--- NOTE | 2023-05-20 23:06 | XRR_ITS ---
PROCEDURE INFORMATION: Exam: XR Chest Exam date and time: 05/20/2023 11:08 PM Age: 63 years old Clinical indication: Shortness of breath; Prior surgery; Surgery date: 6+ months; Surgery type: Aortic valve. Loop recorder; Patient HX: C/O SOB TECHNIQUE: Imaging protocol: Radiologic exam of the chest. Views: 1 view. COMPARISON: CT angio chest [id number] 09/04/2019 10:24 AM FINDINGS: Lungs: Unremarkable. No consolidation. Pleural spaces: Unremarkable. No pleural effusion. No pneumothorax. Heart/Mediastinum: Cardiomegaly. Bones/joints: Sternotomy wires. XR/XR chest 1V portable [id number] IMPRESSION: 1. Negative for infiltrate 2. Cardiomegaly. 3. Sternotomy wires.
--- NOTE | 2023-05-20 23:13 | ED_ITS ---
HPI - Recheck/Abnormal Lab/Rx 2 General: Chief Complaint: Recheck/Abnormal Lab/Rx Stated Complaint: hypotension Time Seen by Provider: 05/20/23 23:03 Source: patient and EMS Mode of arrival: EMS Limitations: no limitations History of Present Illness: 63-year-old male who states that he supp osed to take his blood pressure daily per his physician he states he had taken it tonight and it was low in the 80s and 90s he states he has been feeling completely normal he has no complaints he denies any pain or cough or fever he states he did drink some peppermint schnapps tonight. Patient given 1 L and route his blood pressure is now 101/63 [facility] ED 2 PFSH: Medical History Hyperkalemia Allergic dermatitis Dermatitis Herpes zoster Rhus dermatitis Post-COVID syndrome Atrial fibrillation Hypothyroid Mixed hyperlipidemia Anemia Fatigue Aortic aneurysm, intrathoracic Atypical chest pain H/O reduction of closed fracture right wrist Vitamin D deficiency Influenza vaccine needed Patient is higher risk for influenza and needs vaccine. Ventricular fibrillation Patient had an episode of ventricular fibrillation, immediately after the valve surgery. Has not had any recurrence. Cardiomyopathy LVEF was 45% in December 2018- improved from 25% in July of 2018 Abnormal liver enzymes Etiology of the elevated liver enzyme is not clear. Patient has a history of alcohol abuse. 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 implant History of aortic valve replacement H/O right wrist surgery Aortic valve replaced Family History Sister Cancer Diabetes Mother Stroke Hypertension CAD (coronary artery disease) Lung disease Denies family history of Clotting disorder Dementia Chronic kidney disease (CKD) Suicide Anesthesia complication Bleeding disorder Social History Smoking and tobacco/nicotine status: former use of tobacco/nicotine Alcohol intake: current Alcohol intake frequency: 3 or more drinks per day Alcohol type: beer Substance/Drug Use: unknown Marital status: Single Physical Exam 2 Const: COMMON NORMALS: no acute distress, patient oriented x3 and healthy appearing HENMT: COMMON NORMALS: normocephalic and atraumatic HEAD & SCALP: n ormocephalic and atraumatic Eye: COMMON NORMALS: Equal, round and reactive pupils present and EOMs intact bilaterally PUPIL: Yes Equal, round and reactive pupils present Neck/C-Spine: COMMON NORMALS: full ROM and supple Chest: COMMONS NORMALS: normal inspection of the chest Resp: COMMON NORMALS: normal respiratory effort, No retractions, No use of accessory muscles and clear to auscultation bilaterally AUSCULTATION: clear to auscultation bilaterally Cardio: COMMON NORMALS: regular rate, regular rhythm and No murmurs present (Cardio) RATE: regular rate RHYTHM: regular rhythm GI: COMMON NORMALS: Normal to inspection, nondistended, normoactive bowel sounds present, Soft to palpation, non-tender and no masses PALPATION: Yes Soft to palpation Extremity: COMMON NORMALS: normal to inspection and full ROM Neuro: COMMON NORMALS: patient oriented x3, moves all extremities and no focal motor deficits Psych: COMMON NORMALS: mental status grossly normal, Normal thought process present and cooperative THOUGHT PROCESS: Normal thought process present Skin: COMMON NORMALS: no rashes or lesions noted and no wounds GENERAL SKIN EXAM: no rashes or lesions noted Course 2 Vital Signs: Vital signs: Vital Signs Temperature 97.8 F 05/20/23 22:54 Pulse Rate 61 05/21/23 00:28 Respiratory Rate 14 05/21/23 00:28 Blood Pressure 116/72 05/21/23 00:28 Pulse Oximetry 98 05/21/23 00:28 Oxygen Delivery Me thod Nasal Cannula 05/21/23 00:05 Oxygen Flow Rate 2 05/20/23 23:21 MDM - Recheck/Abnormal Lab/Rx Medical Decision Making Patient presents here with concern of hypotension his blood pressure here has been normal he had slight worsening kidney function did give him IV fluids here he has been making urine he is to follow-up with his PCP in 3 to 5 days to have his kidney function rechecked potassium levels are normal he is stable for discharge return if worsening Medical Records I reviewed the patient's medical records. Lab Data I reviewed the patient's lab results. 05/20/23 23:25 05/20/23 23:25 Radiology Impressions Chest X-Ray 05/20/23 23:06 IMPRESSION: 1. Negative for infiltrate 2. Cardiomegaly. 3. Sternotomy wires. Laboratory Results WBC 6.13 10^3/uL (3.29-11.43) 05/20/23: RBC 4.54 10^6/uL (3.85-5.65) 05/20/23: Hgb 12.60 g/dL (11.27-16.99) 05/20/23: Hct 40.1 % (37-53) 05/20/23: MCV 88.3 fl (82-101) 05/20/23: MCH 27.8 pg (27-33) 05/20/23: MCHC 31.4 g/dL (30-55) 05/20/23: RDW 17.8 % (12.1-15.1) H 05/20/23: Plt Count 119 10^3/cmm (157-399) L 05/20/23: MPV 9.8 fL (7.4-10.4) 05/20/23: Neut % (Auto) 47.6 % 05/20/23: Lymph % (Auto) 34.6 % 05/20/23 23: [place] % (Auto) 11.6 % 05/20/23: Eos % (Auto) 5.4 % 05/20/23: Baso % (Auto) 0.5 % 05/20/23: Neut # (Auto) 2.92 10^3/uL (1.8-7.7) 05/20/23: Lymph # (Auto) 2.1 10^3/uL (0.8-4.8) 05/20/23: [place] # (Auto) 0.7 10^3/uL (0.2-0.9) 05/20/23: Eos # (Auto) 0.3 10^3/uL (0.0-0.8) 05/20/23: Baso # (Auto) 0.0 10^3/uL (0.0-0.1) 05/20/23: Nucleated RBC % (auto) 0 % 05/20/23: Nucleated RBCs # 0.0 /100WBC 03/10/24 23:25 Sodium 139 mmol/L (136-145) 05/20/23 23:25 Potassium 3.8 mmol/L (3.5-5.1) 05/20/23 23:25 Chloride 98 mmol/L (98-107) 05/20/23 23:25 Carbon Dioxide 29 mmol/L (22-29) 05/20/23 23:25 Anion Gap 15.8 (5-19) 05/20/23 23:25 BUN 14 mg/dL (8-23) 05/20/23 23:25 Creatinine 2.3 mg/dL (0.7-1.2) H 05/20/23 23:25 GFR Calculation 28.9 mL/min (90-130) L 05/20/23 23:25 Glucose 94 mg/dL (65-115) 05/20/23 23:25 Calculated Osmolality 288 mOsm/kg (285-295) 05/20/23 23:25 Calcium 8.6 mg/dL (8.5-10.5) 05/20/23 23:25 Total Bilirubin 0.2 mg/dL (0.15-1.2) 05/20/23 23:25 AST 35 U/L (0-40) 05/20/23 23:25 ALT 27 U/L (0-41) 05/20/23 23:25 Alkaline Phosphatase 87 U/L (40-130) 05/20/23 23:25 Total Protein 7.0 g/dL (6.6-8.7) 05/20/23 23:25 Albumin 4.2 g/dL (3.5-5.2) 05/20/23 23:25 Globulin 2.8 g/dL (1.3-4.6) 05/20/23 23:25 All radiology interpretation(s) finalized by discharge EKG Data EKG 1: I personally reviewed and interpreted this EKG as follows: EKG interpretation date: 05/20/23 EKG interpretation time: 22:04 Interpretation: sinus jem hr [address] or t wave abnormalities qrs 122 qtc 497 Discharge Plan Discharge Patient Disposition: Home Clinical Impression: Hypotension Condition: Stable Prescriptions: No Action dexamethasone sodium phosphate 10 mg/mL solution 10 mg IM ONCE Qty: 1 0RF hydrocortisone 1 % cream 1 applic topical BID PRN (Reason: rash) Qty: 28.4 0RF atorvastatin 20 mg tablet 20 mg PO DAILY 90 Days Qty: 90 0RF amiodarone 200 mg tablet See Rx Instructions .ROUTE .COMPLEX Qty: 30 5RF Dose Instruction: TAKE ONE TABLET BY MOUTH DAILY FOR 30 DAYS Rx Instructions: TAKE ONE TABLET BY MOUTH DAILY FOR 30 DAYS levothyroxine 25 mcg capsule 25 mcg PO DAILY 30 Days Qty: 30 5RF Rx Instructions: take on empty stomach 1hr before other meds or food, and 4 hours between iron, mineral, vitamins lisinopril 5 mg tablet See Rx Instructions .ROUTE .COMPLEX Qty: 30 5RF Dose Instruction: TAKE ONE TABLET BY MOUTH EVERY DAY FOR 30 DAYS Rx Instructions: TAKE ONE TABLET BY MOUTH EVERY DAY FOR 30 DAYS loratadine 10 mg tablet 10 mg PO DAILY 30 Days Qty: 30 5RF metoprolol tartrate 25 mg tablet 25 mg PO BID 30 Days Qty: 60 5RF aspirin 81 mg tablet,delayed release (DR/EC) See Rx Instructions .ROUTE .COMPLEX Qty: 90 2RF Dose Instruction: TAKE ONE TABLET BY MOUTH DAILY FOR 30 DAYS Rx Instructions: TAKE ONE TABLET BY MOUTH DAILY FOR 30 DAYS furosemide 20 mg tablet See Rx Instructions .ROUTE .COMPLEX Qty: 60 5RF Dose Instruction: TAKE TWO TABLETS BY MOUTH TWICE DAILY Rx Instructions: TAKE TWO TABLETS BY MOUTH TWICE DAILY nitroglycerin 0.4 mg tablet, sublingual See Rx Instructions .ROUTE .COMPLEX Qty: 25 2RF Dose Instruction: DISSOLVE 1 TABLET UNDER TONGUE EVERY 5 MINUTES NEEDED FOR CHEST PAIN. MAY TAKE UP TO 3 DOSES PER EPISODE; IF NO RELIEF AFTER 3RD DOSE, CALL 911 OR SEEK EMERGENCY CARE Rx Instructions: DISSOLVE 1 TABLET UNDER TONGUE EVERY 5 MINUTES NEEDED FOR CHEST PAIN. MAY TAKE UP TO 3 DOSES PER EPISODE; IF NO RELIEF AFTER 3RD DOSE, CALL 911 OR SEEK EMERGENCY CARE potassium chloride 10 mEq tablet extended release 10 meq PO BID Qty: 60 0RF Rx Instructions: NOTE CHANGE - 1 tab BID not 1/2 tab BID Discharge Orders: Discharge ED (Routine); Ordered 05/21/23 Ordered By: Celso Rojas Referrals: CARA Bob, [employer] [Primary Care Provider] - 4-7 days Discharge Diet: Advance as tolerated Discharge Activity: Resume usual activity Patient Instructions: Hypotension (ED) Coding Level of Care Code ED Service Car Driver for Joanne Spicer
[2023-05-20 23:21] VITALS: BP 101/63; PULSE 57; RESP 16; O2SAT 97
[2023-05-20 23:38] LABS: Positive C 1
[2023-05-20 23:39] LABS: Basophils % 0.5 %; Eosinophils # 0.3 10^3/uL (0.0-0.8); Eosinophils % 5.4 %; Hematocrit 40.1 % (37-53); Lymphocytes # 2.1 10^3/uL (0.8-4.8); Lymphocytes % 34.6 %; Mean Corpuscular HGB Conc 31.4 g/dL (30-55); Mean Corpuscular Hemoglobin 27.8 pg (27-33); Mean Corpuscular Volume 88.3 fl (82-101); Mean Platelet Volume 9.8 fL (7.4-10.4); Monocytes # 0.7 10^3/uL (0.2-0.9); Monocytes % 11.6 %; Neutrophils # 2.92 10^3/uL (1.8-7.7); Neutrophils % 47.6 %; Nucleated Red Blood Cells % 0 %; Platelet Count 119 10^3/cmm (157-399); Red Blood Count 4.54 10^6/uL (3.85-5.65); Red Cell Distribution Width 17.8 % (12.1-15.1); White Blood Count 6.13 10^3/uL (3.29-11.43)
[2023-05-20 23:56] LABS: Alanine Aminotransferase 27 U/L (0-41); Albumin Level 4.2 g/dL (3.5-5.2); Alkaline Phosphatase 87 U/L (40-130); Anion Gap 15.8 (5-19); Aspartate Amino Transferase 35 U/L (0-40); Blood Urea Nitrogen 14 mg/dL (8-23); Calcium 8.6 mg/dL (8.5-10.5); Carbon Dioxide 29 mmol/L (22-29); Chloride 98 mmol/L (98-107); Globulin 2.8 g/dL (1.3-4.6); Glomerular Filtration Rate 28.9 mL/min (90-130); Glucose 94 mg/dL (65-115); Osmolality Calculated 288 mOsm/kg (285-295); Potassium 3.8 mmol/L (3.5-5.1); Sodium 139 mmol/L (136-145); Total Bilirubin 0.2 mg/dL (0.15-1.2)
[2023-05-21 00:05] VITALS: BP 99/62; PULSE 58; RESP 16; O2SAT 97
[2023-05-21] MEDS: sodium chloride 0.9% 500 ML 999 ML IV (00:14)
[2023-05-21 00:15] VITALS: BP 95/62
[2023-05-21 00:28] VITALS: BP 116/72; PULSE 61; RESP 14; O2SAT 98
== END 2023-05-21 01:08 | disposition home or self-care (01) ==
PROVIDERS: Emergency Provider Emergency Medicine; PCP Nurse Practitioner Family
DX: I95.9 Hypotension, unspecified (principal); Z79.82 Long term (current) use of aspirin; Z87.891 Personal history of nicotine dependence; E78.2 Mixed hyperlipidemia; I11.0 Hypertensive heart disease with heart failure; I50.9 Heart failure, unspecified; I43 Cardiomyopathy in diseases classified elsewhere; Z95.818 Presence of other cardiac implants and grafts
CPT/HCPCS: 36415; 71045; 80053; 85025; 93005; 99285; J7040

== ENCOUNTER 2023-05-29 14:54 | Inpatient (IN) | payer MEDICARE, MEDICAID, SELFPAY ==
[2023-05-29] VITALS (36 sets, daily range): BP systolic 80–120; BP diastolic 51–85; PULSE 67–82; RESP 14–29; TEMP 36.6; O2SAT 92–100; BMI 23.6
--- NOTE | 2023-05-29 14:55 | XR_ITS ---
WS: [id number] Portable AP upright chest, 05/29/2023 Clinical Data: dizzy Comparison: Portable chest, 05/20/2023 Findings: No nodules, masses or effusions are seen. The heart is enlarged. The pulmonary vascularity is not increased. No pneumonia or pneumothorax is seen. The aortic arch shows tortuosity. Midline maninder rnotomy sutures are present. There is a recording device overlying the left chest. Impression: Cardiomegaly and atherosclerosis.
--- NOTE | 2023-05-29 15:04 | ED_ITS ---
HPI - General Adult 2 General: Chief complaint: Dizziness Stated complaint: Dizzy, low bp Time Seen by Provider: 05/29/23 14:55 Source: patient and EMS Mode of arrival: EMS Limitations: no limitations History of Present Illness: 63-year-old male with a history of hyper tension he is on amiodarone along with lisinopril and metoprolol he states that he has been having some low blood pressures last week he is seen here a week ago he still has been taking his blood pressure medicine he states stated felt lightheaded and had some blood pressures in the 70s blood pressure is now in the 90s after IV fluid bolus. He denies any vomiting diarrhea or chest pain. Associated symptoms: Deny chest pain, dyspnea, headache(s), nausea, rash or vomiting Review of Systems 2 Const: Denies: fever(s), chills, body aches or change in appetite ENMT: Denies: throat pain or dental pain Card: Reports: lightheadedness; Denies: chest pain Resp: Denies: dyspnea GI: Denies: abdominal pain, nausea, vomiting or diarrhea : Denies: dysuria Musc: Denies: neck pain or back pain Skin/Breast: Denies: rash Neuro: Denies: headache(s) PFSH ED 2 PFSH: Medical History Hyperkalemia Allergic dermatitis Dermatitis Herpes zoster Rhus dermatitis Post-COVID syndrome Atrial fibrillation Hypothyroid Mixed hyperlipidemia Anemia Fatigue Aortic aneurysm, intrathoracic Atypical chest pain H/O reduction of closed fracture right wrist Vitamin D deficiency Influenza vaccine needed Patient is higher risk for influenza and needs vaccine. Ventricular fibrillation Patient had an episode of ventricular fibrillation, immediately after the valve surgery. Has not had any recurrence. Cardiomyopathy LVEF was 45% in December 2018- improved from 25% in July of 2018 Abnormal liver enzymes Etiology of the elevated liver enzyme is not clear. Patient has a history of alcohol abuse. Essential hypertension Congestive heart failure Surgical History Hx of cardiac catheterization Presence of cardiac and vascular implant and graft, unspecified Continuous color television console monitor implant History of aortic valve replacement H/O right wrist surgery Aortic valve replaced Family History Sister Cancer Diabetes Mother Stroke Hypertension CAD (coronary artery disease) Lung disease Denies family history of Clotting disorder Dementia Chronic kidney disease (CKD) Suicide Anesthesia complication Bleeding disorder Social History Smoking and tobacco/nicotine status: former use of tobacco/nicotine Alcohol intake: current Alcohol intake frequency: 3 or more drinks per day Alcohol type: beer Substance/Drug Use: unknown Marital status: Single Physical Exam 2 Const: COMMON NORMALS: patient oriented x3 HENMT: COMMON NORMALS: normocephalic and atraumatic HEAD & SCALP: n ormocephalic and atraumatic Eye: COMMON NORMALS: Equal, round and reactive pupils present and EOMs intact bilaterally PUPIL: Yes Equal, round and reactive pupils present Neck/C-Spine: COMMON NORMALS: full ROM and supple Chest: COMMONS NORMALS: normal inspection of the chest and normal palpation of entire chest wall Resp: COMMON NORMALS: normal respiratory effort, No retractions, No use of accessory muscles and clear to auscultation bilaterally AUSCULTATION: clear to auscultation bilaterally Cardio: COMMON NORMALS: regular rate, regular rhythm and No murmurs present (Cardio) RATE: regular rate RHYTHM: regular rhythm GI: COMMON NORMALS: Normal to inspection, nondistended, normoactive bowel sounds present, Soft to palpation, non-tender and no masses PALPATION: Yes Soft to palpation Extremity: COMMON NORMALS: normal to inspection and full ROM Neuro: COMMON NORMALS: patient oriented x3, moves all extremities and no focal motor deficits Psych: COMMON NORMALS: mental status grossly normal, Normal thought process present and cooperative THOUGHT PROCESS: Normal thought process present Skin: COMMON NORMALS: no rashes or lesions noted and no wounds GENERAL SKIN EXAM: no rashes or lesions noted Course 2 Vital Signs: Vital signs: Vital Signs Temperature 97.9 F 05/29/23 14:57 Pulse Rate 78 05/29/23 15:36 Respiratory Rate 16 05/29/23 15:36 Blood Pressure 92/68 05/29/23 16:00 Pulse Oximetry 94 05/29/23 15:36 Oxygen Delivery Me thod Nasal Cannula 05/29/23 15:36 Oxygen Flow Rate 2 05/29/23 15:36 MDM - General Adult Medical Decision Making Patient presents here with hypertension along with lightheadedness is likely due to his blood pressure medicines. His blood pressure here is improved it is now 103/72 I spoke to the hospitalist will admit likely needs his blood pressure meds readjusted. He has no signs of sepsis white counts normal no fever Medical Records I reviewed the patient's medical records. Lab Data I reviewed the patient's lab results. 05/29/23 14:00 05/29/23 14:00 Laboratory Results WBC 7.30 10^3/uL (3.29-11.43) 05/29/23 14:00 RBC 4.96 10^6/uL (3.85-5.65) 05/29/23 14:00 Hgb 14.00 g/dL (11.27-16.99) 05/29/23 14:00 Hct 44.5 % (37-53) 05/29/23 14:00 MCV 89.7 fl (82-101) 05/29/23 14:00 MCH 28.2 pg (27-33) 05/29/23 14:00 MCHC 31.5 g/dL (30-55) 05/29/23 14:00 RDW 18.5 % (12.1-15.1) H 05/29/23 14:00 Plt Count 224 10^3/cmm (157-399) 05/29/23 14:00 MPV 11.0 fL (7.4-10.4) H 05/29/23 14:00 Neut % (Auto) 64.4 % 05/29/23 14:00 Lymph % (Auto) 18.2 % 05/29/23 14:00 [place] % (Auto) 10.8 % 05/29/23 14:00 Eos % (Auto) 5.8 % 05/29/23 14:00 Baso % (Auto) 0.5 % 05/29/23 14:00 Neut # (Auto) 4.70 10^3/uL (1.8-7.7) 05/29/23 14:00 Lymph # (Auto) 1.3 10^3/uL (0.8-4.8) 05/29/23 14:00 [place] # (Auto) 0.8 10^3/uL (0.2-0.9) 05/29/23 14:00 Eos # (Auto) 0.4 10^3/uL (0.0-0.8) 05/29/23 14:00 Baso # (Auto) 0.0 10^3/uL (0.0-0.1) 05/29/23 14:00 Nucleated RBC % (auto) 0 % 05/29/23 14:00 Nucleated RBCs # 0.0 /100WBC 05/29/23 14:00 Sodium 143 mmol/L (136-145) 05/29/23 14:00 Potassium 4.7 mmol/L (3.5-5.1) 05/29/23 14:00 Chloride 101 mmol/L (98-107) 05/29/23 14:00 Carbon Dioxide 28 mmol/L (22-29) 05/29/23 14:00 Anion Gap 18.7 (5-19) 05/29/23 14:00 BUN 33 mg/dL (8-23) H 05/29/23 14:00 Creatinine 2.0 mg/dL (0.7-1.2) H 05/29/23 14:00 GFR Calculation 33.9 mL/min (90-130) L 05/29/23 14:00 Glucose 98 mg/dL (65-115) 05/29/23 14:00 Calculated Osmolality 303 mOsm/kg (285-295) H 05/29/23 14:00 Calcium 9.6 mg/dL (8.5-10.5) 05/29/23 14:00 Total Bilirubin 0.4 mg/dL (0.15-1.2) 05/29/23 14:00 AST 24 U/L (0-40) 05/29/23 14:00 ALT 20 U/L (0-41) 05/29/23 14:00 Alkaline Phosphatase 84 U/L (40-130) 05/29/23 14:00 Troponin T Baseline 29 ng/L (0-15) H 05/29/23 14:00 Total Protein 7.4 g/dL (6.6-8.7) 05/29/23 14:00 Albumin 4.7 g/dL (3.5-5.2) 05/29/23 14:00 Globulin 2.7 g/dL (1.3-4.6) 05/29/23 14:00 No radiology studies performed this visit EKG Data EKG 1: I personally reviewed and interpreted this EKG as follows: EKG interpretation date: 05/29/23 EKG interpretation time: 15:39 Interpretation: nsr hr [address] elevation qrs 110 qtc 391 Discharge Plan Discharge Patient Disposition: Admitted As Inpatient Clinical Impression: Hypotension, Light-headedness Condition: Stable Prescriptions: No Action hydrocortisone 1 % cream 1 applic topical BID PRN (Reason: rash) Qty: 28.4 0RF atorvastatin 20 mg tablet 20 mg PO DAILY 90 Days Qty: 90 0RF loratadine 10 mg tablet 10 mg PO DAILY 30 Days Qty: 30 5RF metoprolol tartrate 25 mg tablet 25 mg PO BID 30 Days Qty: 60 5RF nitroglycerin 0.4 mg tablet, sublingual See Rx Instructions .ROUTE .COMPLEX Qty: 25 2RF Dose Instruction: DISSOLVE 1 TABLET UNDER TONGUE EVERY 5 MINUTES NEEDED FOR CHEST PAIN. MAY TAKE UP TO 3 DOSES PER EPISODE; IF NO RELIEF AFTER 3RD DOSE, CALL 911 OR SEEK EMERGENCY CARE Rx Instructions: DISSOLVE 1 TABLET UNDER TONGUE EVERY 5 MINUTES NEEDED FOR CHEST PAIN. MAY TAKE UP TO 3 DOSES PER EPISODE; IF NO RELIEF AFTER 3RD DOSE, CALL 911 OR SEEK EMERGENCY CARE potassium chloride 10 mEq tablet extended release 10 meq PO BID Qty: 60 0RF Rx Instructions: NOTE CHANGE - 1 tab BID not 1/2 tab BID betamethasone valerate 0.1 % cream 1 applic TOPICAL BID amiodarone 200 mg tablet 200 mg PO DAILY aspirin 81 mg tablet,delayed release (DR/EC) 81 mg PO DAILY lisinopril 5 mg tablet 5 mg PO DAILY furosemide 20 mg tablet 40 mg PO BID levothyroxine 25 mcg tablet 25 mcg PO DAILY Referrals: Lisbeth,CARA, TAX SERVICES INTERN [Primary Care Provider] - Coding Level of Care Code ED Carpenter'S Assistant for Joanne Spicer
[2023-05-29 15:19] LABS: Basophils % 0.5 %; Eosinophils # 0.4 10^3/uL (0.0-0.8); Eosinophils % 5.8 %; Hematocrit 44.5 % (37-53); Lymphocytes # 1.3 10^3/uL (0.8-4.8); Lymphocytes % 18.2 %; Mean Corpuscular HGB Conc 31.5 g/dL (30-55); Mean Corpuscular Hemoglobin 28.2 pg (27-33); Mean Corpuscular Volume 89.7 fl (82-101); Monocytes # 0.8 10^3/uL (0.2-0.9); Monocytes % 10.8 %; Neutrophils % 64.4 %; Nucleated Red Blood Cells % 0 %; Platelet Count 224 10^3/cmm (157-399); Red Blood Count 4.96 10^6/uL (3.85-5.65); Red Cell Distribution Width 18.5 % (12.1-15.1)
--- NOTE | 2023-05-29 15:39 | ECG_ITS ---
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 Measurements Intervals [place] Rate: 78 P: -50 MT: 165 QRS: -17 QRSD: 110 T: -20 QT: 357 QTc: 409 Interpretive Statements SINUS RHYTHM ST DEVIATION AND MODERATE T-WAVE ABNORMALITY, CONSIDER ANTERIOR ISCHEMIA [-0.1+ mV T-WAVE IN V3/V4] ST DEVIATION AND MODERATE T-WAVE ABNORMALITY, CONSIDER INFERIOR ISCHEMIA [-0.1+ mV T-WAVE IN II/aVF] Compared to ECG 05/20/2023 22:04:43 Ectopic atrial rhythm now present Sinus bradycardia no longer present First degree AV block no longer present Intraventricular conduction delay no longer present T-wave abnormality still present Possible ischemia still present Electronically Signed On 05-29-2023 21:30:40 CDT by Soy Vicente M.D. [id number]
[2023-05-29 15:50] LABS: Alanine Aminotransferase 20 U/L (0-41); Albumin Level 4.7 g/dL (3.5-5.2); Alkaline Phosphatase 84 U/L (40-130); Anion Gap 18.7 (5-19); Aspartate Amino Transferase 24 U/L (0-40); Blood Urea Nitrogen 33 mg/dL (8-23); Calcium 9.6 mg/dL (8.5-10.5); Carbon Dioxide 28 mmol/L (22-29); Chloride 101 mmol/L (98-107); Creatinine Clr Calc Pharmacy 41.7778; Globulin 2.7 g/dL (1.3-4.6); Glomerular Filtration Rate 33.9 mL/min (90-130); Glucose 98 mg/dL (65-115); Osmolality Calculated 303 mOsm/kg (285-295); Potassium 4.7 mmol/L (3.5-5.1); Sodium 143 mmol/L (136-145); Total Bilirubin 0.4 mg/dL (0.15-1.2); Total Protein 7.4 g/dL (6.6-8.7)
[2023-05-29 15:54] LABS: Troponin(5th) Baseline 29 ng/L (0-15)
--- NOTE | 2023-05-29 16:00 | PC.NURSE ---
1 liter NS infused, started by EMS, Dr Crystal linda
[2023-05-29] MEDS: sodium chloride 0.9% 500 ML 999 ML IV (16:02)
[2023-05-29 17:24] LABS: Troponin 5 2HR 22.03 ng/L (0-15); Troponin 5 2HR Delta -6.97 ABS# (0-10)
--- NOTE | 2023-05-29 17:38 | ECG_ITS ---
[facility] Test Date: 2023-05-29 Pat Name: Manuel Moreno Department: Room: Gender: Male Deputy Fire Chief: : 1960 Requested By: Celso Rojas Order Number: [id number] [place] MD: Soy Vicente M.D. Measurements Intervals [place] Rate: 76 P: -5 AR: 183 QRS: -21 QRSD: 101 T: 111 QT: 368 QTc: 414 Interpretive Statements SINUS RHYTHM BORDERLINE LEFT AXIS DEVIATION [QRS AXIS < -20] ST DEVIATION AND MODERATE T-WAVE ABNORMALITY, CONSIDER ANTEROLATERAL ISCHEMIA [-0.1+ mV T-WAVE IN V3-V6] Compared to ECG 05/29/2023 15:39:58 Ectopic atrial rhythm no longer present T-wave abnormality still present Possible ischemia still present Electronically Signed On 05-29-2023 21:37:35 CDT by Soy Vicente M.D. [id number]
--- NOTE | 2023-05-29 18:42 | CTR_ITS ---
PROCEDURE INFORMATION: Exam: CT Abdomen And Pelvis Without Contrast Exam date and time: 05/29/2023 7:06 PM Age: 63 years old Clinical indication: Condition or disease; Kidney or ureter condition; Other: Naldo; Patient HX: Patient denies abd/ back pain TECHNIQUE: Imaging protocol: Computed tomography of the abdomen and pelvis without contrast. Radiation optimization: All CT scans at this facility use at least one of these dose optimization techniques: automated exposure control; mA and/or kV adjustment per patient size (includes targeted exams where dose is matched to clinical indication); or iterative reconstruction. COMPARISON: US abdomen complete* [id number] 12/10/2018 7:39 AM RADIATION DOSE METRICS: Total DLP (mGy-cm): 724.34 FINDINGS: Lungs: Lung bases are clear. No pleural effusion. Heart: Moderate cardiomegaly is noted. Liver: The liver demonstrates hyperdensity and irregularity suggesting cirrhosis. The left lobe is severely atrophic. I see no liver mass. Gallbladder and bile ducts: Normal. No calcified stones. No ductal dilation. Pancreas: Normal. No ductal dilation. Spleen: Normal. No splenomegaly. Adrenal glands: Normal. No mass. Kidneys and ureters: Normal. No hydronephrosis. Stomach and bowel: Unremarkable. No obstruction. No mucosal thickening. Appendix: No evidence of appendicitis. Intraperitoneal space: Unremarkable. No free air. No significant fluid collection. Vasculature: Unremarkable. No abdominal aortic aneurysm. Lymph nodes: Unremarkable. No enlarged lymph nodes. Urinary bladder: Unremarkable as visualized. Reproductive: Unremarkable as visualized. Bones/joints: Unremarkable. No acute fracture. Soft tissues: Unremarkable. CT/CT kidney stone [id number] IMPRESSION: 1. Findings consistent with hepatic cirrhosis 2. Stable cardiomegaly
--- NOTE | 2023-05-29 18:42 | USCV_ITS ---
Manuel Moreno Age: 63 Gender: M : 1960 Exam Date: 05/29/2023 21:05 Ordering Phys: Jing Macario MD Technologist: ED [place] [facility] [place] order says chf History of bioprosthetic AVR 2018. history of HTN. BP: 113 / 76 HR: 71 Rhythm: Sinus Technical Quality: Adequate MEASUREMENTS (Male / Female) Normal Values 2D ECHO LV Diastolic Diameter PLAX 4.6 cm 4.2 - 5.9 / 3.9 - 5.3 cm IVS Diastolic Thickness 1.8 cm 0.6 - 1.0 / 0.6 - 0.9 cm IVS Systolic Thickness 2.3 cm LVPW Diastolic Thickness 1.7 cm 0.6 - 1.0 / 0.6 - 0.9 cm LVPW Systolic Thickness 2.1 cm LVOT Diameter 2.4 cm LV Ejection Fraction 2D Teich 55.6 % LV Ejection Fraction MOD 2C 72.4 % LV Ejection Fraction 2C AL 74.2 % LA Diameter 3.7 cm Aorta at Sinotubular Diameter 4.8 cm IVC Diameter 1.3 cm M-MODE LA Ao Ratio MM 0.5 AV Cusp Separation MM 2.1 cm DOPPLER AV Peak Velocity 202.0 cm/s LVOT Peak Velocity 76.0 cm/s AV Area Cont Eq vti 1.6 cm squared AV Area Cont Eq pk 1.7 cm squared MV Peak Velocity 71.0 cm/s MV Area PHT 3.3 cm squared Mitral E to A Ratio 0.9 TR Peak Velocity 239.0 cm/s TR Peak Gradient 22.8 mmHg TV Peak E Velocity 81.0 cm/s Right Atrial Pressure 3.0 mmHg Pulmonary Artery Systolic Pressu 25.8 mmHg PV Peak Velocity 68.0 cm/s FINDINGS Left Ventricle Left ventricle normal in size. LV systolic function is normal with EF of 55 to 60%. No regional wall motion abnormalities are seen. Moderate left ventricular hypertrophy. Right Ventricle Normal in size and function Right Atrium Normal in size Left Atrium Normal in size Mitral Valve Structurally normal mitral valve. Mild mitral regurgitation. Aortic Valve Bioprosthetic aortic valve is seen. Bioprosthetic aortic valve is functioning normally with DVI of 0.37. Mean gradient across valve is 8 mmHg. Tricuspid Valve Trace tricuspid regurgitation. Pulmonary artery systolic pressure is normal. Pulmonic Valve Mild pulmonic regurgitation Pericardium Normal Aorta Ascending aorta is dilated with diameter of 5cm. IVC Not well visualized. CONCLUSIONS LV systolic function is normal with EF of 55-60% Moderate left ventricular hypertropy Mild mitral regurgitation. Bioprosthetic aortic valve is functioning normally with DVI of 0.37. Mean gradient across valve is 8 mmHg. Trace tricuspid regurgitation. Mild pulmonic regurgitation Ascending aorta is dilated with diameter of 5cm. Compared to prior echocardiogram from 2020, ascending aortic aneurysm size has progressed. Recommend CT to accurately assess the size. Soy Vicente MD (Electronically Signed) Final Date: 30 May 2023 12:08 S
--- NOTE | 2023-05-29 18:44 | P.HP_ITS ---
Providers/Chief Complaint 2 Admitting Physician: Jing Macario MD Primary Care Provider: JOSE DAVID Kiran Chief Complaint: Dizzy, low bp History of Present Illness Manuel Moreno is a 63 year old male history of hypertension, hypothyroidism, post AVR for significant aortic regurgitation in 2019, atrial fibrillation, cardiomyopathy with last known EF of 50 to 55% with grade 1 diastolic dysfunction, hypertension who presented to the hospital with episodic dizziness that has been ongoing for about 1 week now. Patient reports episodes of feeling as if the room is spinning out and then nearly passing out. He has been caught by family members at home. No obvious inciting factor. States that most recent fall was yesterday while he was sitting and talking to his family members and then suddenly passed out. He was in the emergency room for similar complaints on May 20, 2023 and was noted to be hypotensive. He was treated with IV fluids, improved significantly and was discharged home. Since returning home he states he has had multiple episodes similar episodes. Denies any chest pain dizziness palpitations or chest discomfort prior to these episodes. No history of seizure disorder. Upon arrival in the emergency room today his blood pressure was initially 72/35. He received a liter of IV fluids following which blood pressure at the time of this assessment is at 90/56 mmHg. He is not currently tachycardic, however review of medications shows he is on metoprolol at home.'s labs additionally show signs of acute kidney injury with creatinine at 2.0, on May 19 it was at 2.3, previously having been normal. Denies any difficulty urination. Denies any known history of prostate problems. Denies any known history of nephrolithiasis. No complaints of fever chills nausea vomiting diarrhea or other GI losses. No recent change in his medications. Review of Systems 2 General: Reports: 10 or more systems reviewed and unremarkable except in HPI and below Const: Denies: fever(s), chills or body aches Eyes: Denies: change in vision, blurry vision or photophobia ENMT: Reports: hoarseness; Denies: throat pain, enlarged tonsils, odynophagia or nasal congestion Card: Denies: chest pain, palpitations, irregular heart rhythm, edema, swelling of feet/ankles, lightheadedness, pre-syncope, dyspnea on exertion or orthopnea Resp: Denies: dyspnea, productive cough, non-productive cough, wheezing, stridor, pain on inspiration, change in phlegm color, hemoptysis or chest congestion GI: Denies: abdominal pain, nausea, vomiting, hematemesis, coffee ground emesis, dysphagia, heartburn, diarrhea, constipation, GI cramping, change in stool character, hematochezia or melena : Denies: flank pain, dysuria, urinary frequency, urinary urgency, urinary hesitancy or hematuria Musc: Denies: neck pain, back pain, extremity pain, joint swelling, joint warmth or deformity Neuro: Denies: headache(s), numbness in extremities, weakness in extremities, sensory changes, difficulty walking, frequent falls, dizziness, vertigo, behavioral changes, Slurred speech present or seizure-like activity Psych: Denies: anxiety, depression, suicidal ideation or homicidal ideation Endo: Denies: polyuria, polydipsia, tired all the time, cold intolerance or hot flashes Kiran/Lymph: Denies: easy bruising or easy bleeding Medications/Allergies Home Medications Medication Instructions Recorded Confirmed Last Taken Type hydrocortisone 1 % topical cream 1 applic topical BID PRN rash 03/28/21 05/29/23 Unknown Rx #28.4 grams atorvastatin 20 mg tablet 20 mg PO DAILY 90 days #90 tabs 03/20/23 05/29/23 05/29/23 Rx loratadine 10 mg tablet 10 mg PO DAILY 30 days #30 tabs 03/20/23 05/29/23 05/29/23 Rx metoprolol tartrate 25 mg tablet 25 mg PO BID 30 days #60 tabs 03/20/23 05/29/23 05/28/23 Rx nitroglycerin 0.4 mg sublingual See Rx Instructions .Route 04/06/23 05/29/23 Unknown Rx tablet .COMPLEX #25 tabs potassium chloride 10 mEq 10 meq PO BID #60 tabs 04/30/23 05/29/23 05/29/23 Rx tablet,extended release amiodarone 200 mg tablet 200 mg PO DAILY 05/29/23 05/29/23 05/29/23 History aspirin 81 mg tablet,delayed 81 mg PO DAILY 05/29/23 05/29/23 05/29/23 History release betamethasone valerate 0.1 % 1 applic topical BID 05/29/23 05/29/23 Unknown History topical cream furosemide 20 mg tablet 40 mg PO BID 05/29/23 05/29/23 05/29/23 History levothyroxine 25 mcg tablet 25 mcg PO DAILY 05/29/23 05/29/23 05/29/23 History lisinopril 5 mg tablet 5 mg PO DAILY 05/29/23 05/29/23 05/29/23 History Allergies Allergy/AdvReac Type Severity Reaction Status Date / Time No Known Allergies Allergy Verified 05/29/23 15:06 PFSH Acute 2 PFSH: Medical History (Updated 05/30/23 @ 15:37 by Jing Macario MD) Hyperkalemia Allergic dermatitis Dermatitis Herpes zoster Rhus dermatitis Post-COVID syndrome Atrial fibrillation Hypothyroid Mixed hyperlipidemia Anemia Fatigue Aortic aneurysm, intrathoracic Atypical chest pain H/O reduction of closed fracture right wrist Vitamin D deficiency Influenza vaccine needed Patient is higher risk for influenza and needs vaccine. Ventricular fibrillation Patient had an episode of ventricular fibrillation, immediately after the valve surgery. Has not had any recurrence. Cardiomyopathy LVEF was 45% in December 2018- improved from 25% in July of 2018 resolved as of 2020 Abnormal liver enzymes Etiology of the elevated liver enzyme is not clear. Patient has a history of alcohol abuse. Essential hypertension Congestive heart failure Diastolic heart failure Surgical History Hx of cardiac catheterization Presence of cardiac and vascular implant and graft, unspecified Continuous conveyor monitor implant History of aortic valve replacement H/O right wrist surgery Aortic valve replaced Family History Sister Cancer Diabetes Mother Stroke Hypertension CAD (coronary artery disease) Lung disease Denies family history of Clotting disorder Dementia Chronic kidney disease (CKD) Suicide Anesthesia complication Bleeding disorder Social History Smoking and tobacco/nicotine status: former use of tobacco/nicotine Alcohol intake: current Alcohol intake frequency: 3 or more drinks per day Alcohol type: beer Substance/Drug Use: unknown Marital status: Single Vitals/I&O/Wt Last Vital Signs Temp 97.9 F 05/29/23 14:57 Pulse 80 05/29/23 18:30 Resp 16 05/29/23 18:30 BP 113/76 05/29/23 18:30 Pulse Ox 92 05/29/23 18:30 O2 Del Method Nasal Cannula 05/29/23 18:30 O2 Flow Rate 2 05/29/23 16:30 05/29/23 05/29/23 05/29/23 06:59 14:59 22:59 Intake Total 500 / 500 Balance 500 / 500 Weight last 48 hrs Weight 78.925 kg Physical Exam 2 Narrative: General: No acute distress, AO x3 HEENT: PERRLA, pupils bilaterally equal and reactive, pallors not present Chest: Normal vesicular breath sounds, no added sounds, equal good air entry bilaterally CVS: S1-S2 regular, no murmurs, no tachycardia, no gallops, no rubs Abdomen: Soft, nontender, no organomegaly, bowel sounds present Neuro: No focal deficits, no facial deformity, AO x3, power 5/5 in all limbs Extremities: No edema clubbing or cyanosis Data 05/30/23 05:15 05/30/23 05:15 A&P Assessment and plan (1) Acute kidney injury: (2) Hypotension: (3) Essential hypertension: (4) Congestive heart failure: Qualifiers: Heart failure type: biventricular Qualified Code(s): I50.82 - Biventricular heart failure (5) Aortic valve replaced: (6) Atrial fibrillation: Qualifiers: Atrial fibrillation type: unspecified Qualified Code(s): I48.91 - Unspecified atrial fibrillation (7) Hypothyroid: Qualifiers: Hypothyroidism type: acquired Qualified Code(s): E03.9 - Hypothyroidism, unspecified (8) Syncope: Plan 63-year-old male with a past medical history of cardiomyopathy, CHF, dyslipidemia, hypothyroidism and hypertension presenting to the hospital today with chief complaints of recurrent episodes of dizziness and near syncope at home. Patient is noted to be hypotensive today and clinically appearing to be dehydrated which could be the reason for his syncopal episode. Holding all antihypertensives today. Hold diuretics. Clinically patient appears to be hypovolemic and dehydrated and spite of a past history of CHF. Gentle IV fluid resuscitation at 50 cc normal saline an hour. Assess for response with fluid resuscitation and holding medications. Additionally will obtain cardiac evaluation including EKG and troponins, will additionally check echocardiogram. Last echocardiogram in the system dates back to February 2021. Which showed an EF of 50 to 55% with grade 1 diastolic dysfunction. Patient has a known bioprosthetic aortic valve with increased gradient across the aortic valve of 12.5 mmHg. He also had evidence of a dilated aortic root measuring 4.63 cm. Unlikely to be a aortic dissection given that symptoms have been ongoing for over a week at this point in time, no complaints of chest discomfort. Patient overall appears to be nontoxic. Check TSH. Normal blood glucose. Attestations 2 Medical Necessity Statement*: Greater than 2 midnight admission is anticipated at this point in time. Coding Level of Care Code Acute Code for Chg Fwd High MDM includes number and complexity of problems actively addressed during encounter, amount and/or complexity of data reviewed/ordered and described risk of complication, morbidity or mortality of management as documented Diagnoses Acute kidney injury N17.9 Hypotension I95.9 Essential hypertension I10 Biventricular congestive heart failure I50.82 Heart failure type: biventricular Aortic valve replaced Z95.2 Atrial fibrillation, unspecified type I48.91 Atrial fibrillation type: unspecified Acquired hypothyroidism E03.9 Hypothyroidism type: acquired Syncope R55
--- NOTE | 2023-05-29 19:08 | PC.NURSE ---
Report to LOIS Le
[2023-05-29] MEDS: sodium chloride 0.9% 1,000 ML 50 ML IV (19:57)
[2023-05-29 21:08] LABS: Troponin 5 6HR 20.88 ng/L (0-15)
[2023-05-29 21:27] LABS: Troponin 5 6HR Delta -8.12 ng/L (0-12)
[2023-05-29 23:02] LABS: Add Urine Microscopic? YES; Bilirubin Urine Neg (Negative); Blood Urine Neg (Negative); Glucose Urine UA Norm (Normal); Ketones Urine Negative (Negative); Leukocyte Esterase Urine Negative (Negative); Nitrate Urine Negative (Negative); Protein Urine Trace (Negative); Urine Appearance Clear (CLEAR); Urine Color Yellow (Yellow); Urobilinogen Urine Neg (Negative); pH Urine 6.5 (5-7)
[2023-05-29 23:03] LABS: Add Urine Culture? No; Bacteria Urine TRACE /hpf; Mucus Urine 1+ /hpf
[2023-05-29 23:11] LABS: Potassium, Radom Urine 82 mmol/L; Urine Creatinine 129 mg/dL (39-259); Urine Random Chloride 68 mmol/L; Urine Random Sodium 46 mmol/L
[2023-05-29 23:38] LABS: Eosinophil Urine No Eosinophils Seen; Urine Eosinophil Count 0 (0-0)
[2023-05-30] VITALS (133 sets, daily range): BP systolic 80–147; BP diastolic 47–95; PULSE 56–84; RESP 10–30; TEMP 36.1–37; O2SAT 90–100
[2023-05-30 00:09] LABS: NT Pro B Type Natriuretic Pept 198 pg/mL (0-125); Thyroid Stimulating Hormone 3.42 uIU/mL (0.27-4.20)
[2023-05-30] MEDS: heparin 5,000 unit/mL INJ 1 mL 5000 UNIT SUBCUT ×2 (02:28→12:43)
[2023-05-30 05:31] LABS: Basophils % 0.6 %; Eosinophils # 0.3 10^3/uL (0.0-0.8); Eosinophils % 6.6 %; Hematocrit 35.6 % (37-53); Lymphocytes % 20.3 %; Mean Corpuscular HGB Conc 31.5 g/dL (30-55); Mean Corpuscular Hemoglobin 28.5 pg (27-33); Mean Corpuscular Volume 90.6 fl (82-101); Monocytes # 0.6 10^3/uL (0.2-0.9); Monocytes % 12.8 %; Neutrophils # 2.77 10^3/uL (1.8-7.7); Neutrophils % 59.5 %; Nucleated Red Blood Cells % 0 %; Platelet Count 139 10^3/cmm (157-399); Red Blood Count 3.93 10^6/uL (3.85-5.65); Red Cell Distribution Width 18.1 % (12.1-15.1); White Blood Count 4.67 10^3/uL (3.29-11.43)
[2023-05-30 05:58] LABS: Alanine Aminotransferase 15 U/L (0-41); Albumin Level 3.6 g/dL (3.5-5.2); Alkaline Phosphatase 70 U/L (40-130); Anion Gap 12.9 (5-19); Aspartate Amino Transferase 19 U/L (0-40); Blood Urea Nitrogen 27 mg/dL (8-23); Calcium 8.3 mg/dL (8.5-10.5); Carbon Dioxide 26 mmol/L (22-29); Chloride 107 mmol/L (98-107); Creatinine Clr Calc Pharmacy 69.6458; Globulin 2.5 g/dL (1.3-4.6); Glomerular Filtration Rate 61.1 mL/min (90-130); Glucose 90 mg/dL (65-115); Osmolality Calculated 299 mOsm/kg (285-295); Potassium 3.9 mmol/L (3.5-5.1); Sodium 142 mmol/L (136-145); Total Bilirubin 0.4 mg/dL (0.15-1.2); Total Protein 6.1 g/dL (6.6-8.7)
[2023-05-30] MEDS: aspirin 81 mg EC Tablet PO (08:09)
[2023-05-30] MEDS: atorvastatin 40 mg Tablet 20 MG PO (08:09)
[2023-05-30] MEDS: loratadine 10 mg Tablet PO (08:10)
[2023-05-30] MEDS: pantoprazole DR 40 mg Tablet PO (08:10)
[2023-05-30] MEDS: amiodarone 200 mg Tablet PO (08:10)
[2023-05-30] MEDS: levothyroxine 25 mcg Tablet PO (08:11)
[2023-05-30] MEDS: clotrimazole-betamethasone cream 15gm 1 APPLIC TOPICAL ×2 (08:30→15:14)
[2023-05-30] MEDS: sodium chloride 0.9% 1,000 ML 50 ML IV (12:45)
--- NOTE | 2023-05-30 13:00 | PC.NURSE ---
Upon morning assessment, patient was found to not have a willis catheter despite order. Patient has been able to urinate into a urinal with no complications throughout the night. Bladder scan showed 300mL retained and when asked to urinate to verify no retention patient was able to void 350 with no complications. Nurse clarified with Dr kaminski, no willis needed at this time, not indicated, will continue to monitor.
--- NOTE | 2023-05-30 14:47 | PC.NURSE ---
Report called to Mimi NICE on med surge.
--- NOTE | 2023-05-30 15:41 | P.PN_ITS ---
Subjective 2 Subjective: Patient's blood pressure has been maintained with IV hydration through the night. At the time of this assessment patient's blood pressure is 120 over 80 mmHg.He has had no further episodes of dizziness or syncope in the hospital. Holding all antihypertensives. Medications: Reviewed: Yes Vitals/I&O/Wt Last Vital Signs Temp 98 F 05/30/23 12:50 Pulse 60 05/30/23 14:00 Resp 17 05/30/23 12:50 BP 118/80 05/30/23 12:50 Pulse Ox 98 05/30/23 12:50 O2 Del Method Nasal Cannula 05/30/23 12:50 O2 Flow Rate 2 05/30/23 12:50 05/30/23 05/30/23 05/30/23 06:59 14:59 22:59 Intake Total 720 / 1220 1240 / 1240 Output Total 450 / 450 50 / 500 Balance 720 / 1220 790 / 790 -50 / 740 Weight last 48 hrs Weight 78.925 kg Weight 78.97 kg Weight 78.925 kg Physical Exam 2 Narrative: General: No acute distress, AO x3 HEENT: PERRLA, pupils bilaterally equal and reactive, pallors not present Chest: Normal vesicular breath sounds, no added sounds, equal good air entry bilaterally CVS: S1-S2 regular, no murmurs, no tachycardia, no gallops, no rubs Abdomen: Soft, nontender, no organomegaly, bowel sounds present Neuro: No focal deficits, no facial deformity, AO x3, power 5/5 in all limbs Extremities: No edema clubbing or cyanosis Data 05/30/23 05:15 05/30/23 05:15 A&P Assessment and plan (1) Acute kidney injury: (2) Hypotension: (3) Essential hypertension: (4) Congestive heart failure: Qualifiers: Heart failure type: biventricular Qualified Code(s): I50.82 - Biventricular heart failure (5) Aortic valve replaced: (6) Atrial fibrillation: Qualifiers: Atrial fibrillation type: unspecified Qualified Code(s): I48.91 - Unspecified atrial fibrillation (7) Hypothyroid: Qualifiers: Hypothyroidism type: acquired Qualified Code(s): E03.9 - Hypothyroidism, unspecified (8) Syncope: Plan 63-year-old male with a past medical history of cardiomyopathy, CHF, dyslipidemia, hypothyroidism and hypertension presenting to the hospital with chief complaints of recurrent episodes of dizziness and near syncope at home. Patient was noted to be hypotensive upon arrival however this is improved with continuous IV hydration through the night and holding his antihypertensives and diuretics. Will continue to hold the same and trend blood pressure over the next 24 hours. Discontinue IV fluids and monitor for maintenance of improvement in blood pressure. Check orthostatics now that patient is more stable. BNP is 198, clinically patient appeared to be dehydrated, will hold diuretics at discharge. Telemetry monitoring overnight did not show any arrhythmias. EKG and troponins not concerning for ACS. Echocardiogram performed overnight showed LV systolic function of 55 to 60%, moderate LVH, mild MR, bioprosthetic aortic valve functioning normally with a DVI of 0.37. Ascending aorta dilated with a diameter of 5 cm. Compared to 2019 1 aortic aneurysm has progressed in size. Recommended CT to accurately assess the size. Unlikely to be a aortic dissection given that symptoms have been ongoing for over a week at this point in time, and improvement with IV hydration. However will obtain CT given increase in size significantly. Normal blood glucose. MILADIS improved. CT abdomen without hydroneprhosis Attestations 2 Medical Necessity Statement*: DC IV fluids today, closely monitor for sustained improvement. Anticipate discharge in the upcoming 24 hours if continues to remain stable. Coding Level of Care Code Acute Code for Chg Fwd Diagnoses Acute kidney injury N17.9 Hypotension I95.9 Essential hypertension I10 Biventricular congestive heart failure I50.82 Heart failure type: biventricular Aortic valve replaced Z95.2 Atrial fibrillation, unspecified type I48.91 Atrial fibrillation type: unspecified Acquired hypothyroidism E03.9 Hypothyroidism type: acquired Syncope R55
[2023-05-31] VITALS (7 sets, daily range): BP systolic 99–126; BP diastolic 63–73; PULSE 68–79; RESP 14–17; TEMP 36.5–36.9; O2SAT 87–97
[2023-05-31] MEDS: amiodarone 200 mg Tablet PO (08:58)
[2023-05-31] MEDS: levothyroxine 25 mcg Tablet PO (08:58)
[2023-05-31] MEDS: aspirin 81 mg EC Tablet PO (08:58)
[2023-05-31] MEDS: atorvastatin 40 mg Tablet 20 MG PO (08:58)
[2023-05-31] MEDS: pantoprazole DR 40 mg Tablet PO (08:58)
[2023-05-31] MEDS: loratadine 10 mg Tablet PO (08:58)
--- NOTE | 2023-05-31 10:47 | PM.DCS ---
Discharge Providers Date of Admission: 05/29/23 19:10 Date of Discharge: May 31, 2023 Attending Provider at Admission: Jing Macario MD Attending Provider at Discharge: Jing Macario MD Primary Care Provider: JOSE DAVID Kiran Diagnoses at Discharge Discharge Diagnosis (1) Acute kidney injury: Status: Acute (2) Hypotension: Status: Acute (3) Essential hypertension: Status: Chronic (4) Congestive heart failure: Status: Chronic Qualifiers: Heart failure type: biventricular Qualified Code(s): I50.82 - Biventricular heart failure Permanent problem details: Diastolic heart failure (5) Aortic valve replaced: Status: Acute (6) Atrial fibrillation: Status: Acute Qualifiers: Atrial fibrillation type: unspecified Qualified Code(s): I48.91 - Unspecified atrial fibrillation (7) Hypothyroid: Status: Acute Qualifiers: Hypothyroidism type: acquired Qualified Code(s): E03.9 - Hypothyroidism, unspecified (8) Syncope: Status: Acute Reason for Visit Reason for Visit: Dizzy, low bp Brief History: Manuel Moreno is a 63 year old male history of hypertension, hypothyroidism, post AVR for significant aortic regurgitation in 2019, atrial fibrillation, cardiomyopathy with last known EF of 50 to 55% with grade 1 diastolic dysfunction, hypertension who presented to the hospital with episodic dizziness that has been ongoing for about 1 week now. Patient reports episodes of feeling as if the room is spinning out and then nearly passing out. Upon arrival in the emergency room today his blood pressure was initially 72/35. Labs additionally show signs of acute kidney injury with creatinine at 2.0, on May 19 it was at 2.3, previously having been normal. Denies any difficulty urination. He received fluid bolus in the ER followed by IV hydration NS @ 50 cc/hr. With this, his BP improved. He did not have any recurrent episodes of dizziness. His BP is maintained. ANti hypertensives and Diuretics were discontinued at the time of discharge. Patient remained clinically euvolemic, dehydrated at the time of arrival. BNP was only 183. Chest x-ray did not show any signs of pulmonary vascular congestion. Likely that patient syncopal episodes were related to low blood pressure. MILADIS is resolved at the time of discharge with hydration and holding lisinopril. Other syncope evaluation was pursued as follows: Telemetry monitoring overnight did not show any arrhythmias. EKG and troponins not concerning for ACS. Echocardiogram performed showed LV systolic function of 55 to 60%, moderate LVH, mild MR, bioprosthetic aortic valve functioning normally with a DVI of 0.37. Ascending aorta dilated with a diameter of 5 cm. Compared to 2020 1 aortic aneurysm has progressed in size. Recommended CT to accurately assess the size. Recommend this to be completed as an outpatient as we will try to avoid IV contrast currently given recovering kidney function. No signs of aortic dissection. Unlikely to be a aortic dissection given that symptoms have been ongoing for over a week at this point in time, and improvement with IV hydration. However will obtain CT given increase in size significantly. Normal blood glucose. MILADIS improved. CT abdomen without hydroneprhosis Follow-up appointment arranged with primary care physician on June 07, 2023. Physical Exam Narrative: General: No acute distress, AO x3 HEENT: PERRLA, pupils bilaterally equal and reactive, pallors not present Chest: Normal vesicular breath sounds, no added sounds, equal good air entry bilaterally CVS: S1-S2 regular, no murmurs, no tachycardia, no gallops, no rubs Abdomen: Soft, nontender, no organomegaly, bowel sounds present Neuro: No focal deficits, no facial deformity, AO x3, power 5/5 in all limbs Discharge Data Studies Completed and Pending Completed Studies During Hospitalization Category Date Time Status CT abdomen renal stone [CT kidney stone [id number]] Stat Cat Scan 05/29/23 18:42 Completed XR chest 1V portable [id number] Stat Exams 05/29/23 14:55 Completed CV. echo complete* [id number] Stat Ultrasound 05/29/23 18:42 Completed Pending at discharge Category Date Time Status CMP [Comprehensive Metabolic Panel] Stat Lab 05/31/23 10:45 Ordered Radiology Impressions Abdomen/Pelvis CT 05/29/23 18:42 IMPRESSION: 1. Findings consistent with hepatic cirrhosis 2. Stable cardiomegaly Laboratory Results WBC 4.67 10^3/uL (3.29-11.43) 05/30/23 05:15 RBC 3.93 10^6/uL (3.85-5.65) 05/30/23 05:15 Hgb 11.20 g/dL (11.27-16.99) L 05/30/23 05:15 Hct 35.6 % (37-53) L 05/30/23 05:15 MCV 90.6 fl (82-101) 05/30/23 05:15 MCH 28.5 pg (27-33) 05/30/23 05:15 MCHC 31.5 g/dL (30-55) 05/30/23 05:15 RDW 18.1 % (12.1-15.1) H 05/30/23 05:15 Plt Count 139 10^3/cmm (157-399) L D 05/30/23 05:15 MPV 10.0 fL (7.4-10.4) 05/30/23 05:15 Neut % (Auto) 59.5 % 05/30/23 05:15 Lymph % (Auto) 20.3 % 05/30/23 05:15 [place] % (Auto) 12.8 % 05/30/23 05:15 Eos % (Auto) 6.6 % 05/30/23 05:15 Baso % (Auto) 0.6 % 05/30/23 05:15 Neut # (Auto) 2.77 10^3/uL (1.8-7.7) 05/30/23 05:15 Lymph # (Auto) 1.0 10^3/uL (0.8-4.8) 05/30/23 05:15 [place] # (Auto) 0.6 10^3/uL (0.2-0.9) 05/30/23 05:15 Eos # (Auto) 0.3 10^3/uL (0.0-0.8) 05/30/23 05:15 Baso # (Auto) 0.0 10^3/uL (0.0-0.1) 05/30/23 05:15 Nucleated RBC % (auto) 0 % 05/30/23 05:15 Nucleated RBCs # 0.0 /100WBC 05/30/23 05:15 Sodium 142 mmol/L (136-145) 05/30/23 05:15 Potassium 3.9 mmol/L (3.5-5.1) 05/30/23 05:15 Chloride 107 mmol/L (98-107) 05/30/23 05:15 Carbon Dioxide 26 mmol/L (22-29) 05/30/23 05:15 Anion Gap 12.9 (5-19) 05/30/23 05:15 BUN 27 mg/dL (8-23) H 05/30/23 05:15 Creatinine 1.2 mg/dL (0.7-1.2) 05/30/23 05:15 GFR Calculation 61.1 mL/min (90-130) L 05/30/23 05:15 Glucose 90 mg/dL (65-115) 05/30/23 05:15 Calculated Osmolality 299 mOsm/kg (285-295) H 05/30/23 05:15 Lactic Acid 1.0 mmol/L (0.5-2.2) 05/29/23 16:16 Calcium 8.3 mg/dL (8.5-10.5) L 05/30/23 05:15 Total Bilirubin 0.4 mg/dL (0.15-1.2) 05/30/23 05:15 AST 19 U/L (0-40) 05/30/23 05:15 ALT 15 U/L (0-41) 05/30/23 05:15 Alkaline Phosphatase 70 U/L (40-130) 05/30/23 05:15 Troponin T Baseline 29 ng/L (0-15) H 05/29/23 14:00 Troponin T 120 Minute 22.03 ng/L (0-15) H 05/29/23 16:16 Delta Troponin T -6.97 ABS# (0-10) L 05/29/23 16:16 Troponin T Hi Sens 6Hr 20.88 ng/L (0-15) H 05/29/23 20:09 Troponin T Hi Sens 6Hr Delta -8.12 ng/L (0-12) L 05/29/23 20:09 NT-Pro-B Natriuret Pep 198 pg/mL (0-125) H 05/29/23 20:09 Total Protein 6.1 g/dL (6.6-8.7) L 05/30/23 05:15 Albumin 3.6 g/dL (3.5-5.2) 05/30/23 05:15 Globulin 2.5 g/dL (1.3-4.6) 05/30/23 05:15 TSH 3.42 uIU/mL (0.27-4.20) 05/29/23 20:09 Urine Color Yellow (Yellow) 05/29/23 19:25 Urine Appearance Clear (CLEAR) 05/29/23 19:25 Urine pH 6.5 (5-7) 05/29/23 19:25 Ur Specific [place] 1.010 (1.005-1.030) 05/29/23 19: Urine Protein Trace (Negative) 05/29/23 19: Urine Glucose (UA) Norm (Normal) 05/29/23 19: Urine Ketones Negative (Negative) 05/29/23: Urine Blood Neg (Negative) 05/29/23: Urine Nitrate Negative (Negative) 05/29/23: Urine Bilirubin Neg (Negative) 05/29/23 19: Urine Urobilinogen Neg mg/dL (Negative) 05/29/23 19: Ur Leukocyte Esterase Negative (Negative) 05/29/23: Urine RBC None /hpf (0-2) 05/29/23: Urine WBC None /hpf (0-5) 05/29/23 19:25 Ur Eosinophil Smear 0 (0-0) 05/29/23 19: Ur Squamous Epith Cells None /hpf (0-5) 05/29/23: Amorphous Sediment Not Reportable 05/29/23 19:25 Urine Bacteria Trace /hpf (NONE) 05/29/23 19: Urine Mucus 1+ /hpf 05/29/23 19:25 Urine Eosinophils No eosinophils seen 05/29/23 19: Ur Random Sodium 46 mmol/L 05/29/23 19:25 Ur Random Potassium 82 mmol/L 05/29/23 19:25 Ur Random Chloride 68 mmol/L 05/29/23 19:25 Urine Creatinine 129 mg/dL (39-259) 05/29/23 19:25 Vitals Last Vital Signs Temp 98.3 F 05/31/23 08:00 Pulse 79 05/31/23 08:00 Resp 16 05/31/23 08:00 BP 124/65 05/31/23 08:57 Pulse Ox 87 L 05/31/23 10:46 O2 Del Method Nasal Cannula 05/30/23 16:00 O2 Flow Rate 2 05/31/23 10:46 Discharge Plan Discharge Patient Disposition: Home Condition: Stable Prescriptions: Continued hydrocortisone 1 % cream 1 applic topical BID PRN (Reason: rash) Qty: 28.4 0RF atorvastatin 20 mg tablet 20 mg PO DAILY 90 Days Qty: 90 0RF loratadine 10 mg tablet 10 mg PO DAILY 30 Days Qty: 30 5RF nitroglycerin 0.4 mg tablet, sublingual See Rx Instructions .ROUTE .COMPLEX Qty: 25 2RF Dose Instruction: DISSOLVE 1 TABLET UNDER TONGUE EVERY 5 MINUTES NEEDED FOR CHEST PAIN. MAY TAKE UP TO 3 DOSES PER EPISODE; IF NO RELIEF AFTER 3RD DOSE, CALL 911 OR SEEK EMERGENCY CARE Rx Instructions: DISSOLVE 1 TABLET UNDER TONGUE EVERY 5 MINUTES NEEDED FOR CHEST PAIN. MAY TAKE UP TO 3 DOSES PER EPISODE; IF NO RELIEF AFTER 3RD DOSE, CALL 911 OR SEEK EMERGENCY CARE betamethasone valerate 0.1 % cream 1 applic TOPICAL BID amiodarone 200 mg tablet 200 mg PO DAILY aspirin 81 mg tablet,delayed release (DR/EC) 81 mg PO DAILY levothyroxine 25 mcg tablet 25 mcg PO DAILY Changed metoprolol tartrate 25 mg tablet 12.5 mg PO BID 30 Days Qty: 60 5RF Discontinued potassium chloride 10 mEq tablet extended release 10 meq PO BID Qty: 60 0RF Rx Instructions: NOTE CHANGE - 1 tab BID not 1/2 tab BID lisinopril 5 mg tablet 5 mg PO DAILY furosemide 20 mg tablet 40 mg PO BID Discharge Orders: Discharge Order (Routine); Ordered 05/31/23 Ordered By: Jing Macario Referrals: CARA Bob, [facility] [employer] [employer] [facility] [Primary Care Provider] - 06/07/23 8:15 am Discharge Diet: Usual diet Discharge Activity: Resume usual activity Patient Instructions: Opioid Safety Discharge Attestations Time Spent in Discharge Care*: greater than 30 min Quality Metrics Clinical Quality Measures [ No reported AMI, CVA or VTE this stay] Coding Level of Care Code Acute Code for g Fwd Diagnoses Acute kidney injury N17.9 Hypotension I95.9 Essential hypertension I10 Biventricular congestive heart failure I50.82 Heart failure type: biventricular Aortic valve replaced Z95.2 Atrial fibrillation, unspecified type I48.91 Atrial fibrillation type: unspecified Acquired hypothyroidism E03.9 Hypothyroidism type: acquired Syncope R55
[2023-05-31 12:38] LABS: Alanine Aminotransferase 14 U/L (0-41); Albumin Level 3.5 g/dL (3.5-5.2); Alkaline Phosphatase 69 U/L (40-130); Aspartate Amino Transferase 22 U/L (0-40); Blood Urea Nitrogen 17 mg/dL (8-23); Calcium 8.5 mg/dL (8.5-10.5); Carbon Dioxide 25 mmol/L (22-29); Chloride 106 mmol/L (98-107); Creatinine Clr Calc Pharmacy 92.8397; Globulin 2.4 g/dL (1.3-4.6); Glomerular Filtration Rate 85.2 mL/min (90-130); Glucose 99 mg/dL (65-115); Osmolality Calculated 290 mOsm/kg (285-295); Sodium 139 mmol/L (136-145); Total Bilirubin 0.3 mg/dL (0.15-1.2); Total Protein 5.9 g/dL (6.6-8.7)
== END 2023-05-31 18:24 | disposition home or self-care (01) | DRG 683 ==
LOC: ER 16:35 → ICU 19:11 → MEDSURG 05-30 15:10
PROVIDERS: Admitting Provider Student in an Organized Health Care Education/Training Program; Emergency Provider Emergency Medicine; PCP Nurse Practitioner Family; Visit Provider Student in an Organized Health Care Education/Training Program
DX: N17.9 Acute kidney failure, unspecified (principal); I42.9 Cardiomyopathy, unspecified; I50.32 Chronic diastolic (congestive) heart failure; R55 Syncope and collapse; I11.0 Hypertensive heart disease with heart failure; E03.9 Hypothyroidism, unspecified; I48.91 Unspecified atrial fibrillation; W18.39XA Other fall on same level, initial encounter; E78.2 Mixed hyperlipidemia; I95.9 Hypotension, unspecified; Z79.82 Long term (current) use of aspirin; Z95.2 Presence of prosthetic heart valve; Z87.891 Personal history of nicotine dependence; Z86.16 Personal history of COVID-19
CPT/HCPCS: 36415; 71045; 74176; 80053; 81001; 82436; 82570; 83605; 83880; 84133; 84300; 84443; 84484; 85025; 85999; 93005; 93306; 94760; 96372; 99285; J1644; J7030; J7040

== ENCOUNTER 2023-08-07 16:47 | Emergency (ER) | payer MEDICARE, MEDICAID, SELFPAY ==
[2023-08-07 16:50] VITALS: BP 67/46; RESP 18; TEMP 36.4; O2SAT 97
--- NOTE | 2023-08-07 16:53 | XRR_ITS ---
PROCEDURE INFORMATION: Exam: XR Left Femur Exam date and time: 08/07/2023 5:05 PM Age: 63 years old Clinical indication: Injury or trauma; Fall; Blunt trauma; Thigh or upper leg; Left; Additional info: Fall, thigh pain TECHNIQUE: Imaging protocol: Radiologic exam of the left femur. Views: 2 views. COMPARISON: CT kidney stone [id number] 05/29/2023 7:06 PM FINDINGS: Bones/joints: Comminuted displaced left intertrochanteric femur fracture. The left hip and knee joints appear intact. Soft tissues: Unremarkable. XR/XR femur LT min 2V* [id number] IMPRESSION: Comminuted displaced left intertrochanteric femur fracture.
--- NOTE | 2023-08-07 16:54 | CTR_ITS ---
PROCEDURE INFORMATION: Exam: CT Head Without Contrast Exam date and time: 08/07/2023 5:01 PM Age: 63 years old Clinical indication: Injury or trauma; Fall; Patient HX: Bump to left forehead; Additional info: Fall, head injury TECHNIQUE: Imaging protocol: Computed tomography of the head without contrast. Radiation optimization: All CT scans at this facility use at least one of these dose optimization techniques: automated exposure control; mA and/or kV adjustment per patient size (includes targeted exams where dose is matched to clinical indication); or iterative reconstruction. COMPARISON: CT facial bones wo con* [id number] 10/31/2018 1:16 PM RADIATION DOSE METRICS: Total DLP (mGy-cm): 1137.8 FINDINGS: Brain: Mild diffuse cortical volume loss. Moderate hypodensities in supratentorial periventricular and subcortical white matter, consistent with microangiopathy. 0.6 cm oval hyperdense dural-based lesion arising from the anterior superior right falx. Cerebral ventricles: No ventriculomegaly. Paranasal sinuses: Visualized sinuses are unremarkable. No fluid levels. Mastoid air cells: Visualized mastoid air cells are well aerated. Auditory system: Filling defects in the bilateral external auditory canals, particularly on the right, is most likely impacted cerumen. Clinical correlation recommended. Orbital cavities: Prior cataract surgery. Bones: Unremarkable. No acute fracture. Soft tissues: Left frontal scalp hematoma. Vasculature: No hyperdense artery. CT/CT head wo con* [id number] IMPRESSION: 1. 0.6 cm hyperdense oval lesion along the anterior superior right falx is most likely a meningioma. An acute subarachnoid hemorrhage is considered unlikely, but cannot be entirely excluded. Follow-up with brain MRI is recommended. 2. Left frontal scalp hematoma.
--- NOTE | 2023-08-07 16:54 | CTR_ITS ---
PROCEDURE INFORMATION: Exam: CT Cervical Spine Without Contrast Exam date and time: 08/07/2023 5:01 PM Age: 63 years old Clinical indication: Injury or trauma; Fall; Blunt trauma; Additional info: Fall, neck pain TECHNIQUE: Imaging protocol: Computed tomography of the cervical spine without contrast. Radiation optimization: All CT scans at this facility use at least one of these dose optimization techniques: automated exposure control; mA and/or kV adjustment per patient size (includes targeted exams where dose is matched to clinical indication); or iterative reconstruction. COMPARISON: CT head wo con* [id number] 08/07/2023 5:01 PM RADIATION DOSE METRICS: Total DLP (mGy-cm): 221.1 FINDINGS: Bones: Mild curvature of the cervical spine. Mild degenerative anterior subluxation of C3 on C4. No fracture. Disc space narrowing with mild degenerative endplate changes at C5-C6 and C6-C7. Mild posterior disc bulges at C5-C6 and C6-C7. No significant central canal stenosis identified. Multilevel bilateral bony foraminal stenosis. The facets are intact with degenerative changes. Lungs: Mild atelectasis or scarring in the upper lobes. Vasculature: Carotid bulb calcifications. Soft tissues: Unremarkable. CT/CT cervical spin wo con* [id number] IMPRESSION: No acute findings.
--- NOTE | 2023-08-07 17:10 | W.ED.EXTPRO ---
HPI - Extremity Problem General: Chief complaint: Extremity Injury, Lower Stated complaint: Fall, HTN Time Seen by Provider: 08/07/23 16:48 History of Present Illness: 63-year-old man with a history of atrial fibrillation, hyperlipidemia, hypertension, cardiomyopathy with CHF, who is not on any anticoagulation other than a baby aspirin who presents to the emergency room today with fall by ambulance. He says he was up on a chair changing a light bulb and fell off. He hit his head. His large hematoma on his left forehead. He is unsure if he lost consciousness. He is having some neck pain. Nothing focal. No chest pain. No shortness of breath. No abdominal pain. No pelvic pain. He is complaining of left mid thigh pain. He says this is quite severe. No altered mental status. No nausea or vomiting. No focal motor deficits. Review of Systems Narrative: Constitutional symptoms: Negative except as documented in HPI. Skin symptoms: Negative except as documented in HPI. Eye symptoms: Negative except as documented in HPI. ENMT symptoms: Negative except as documented in HPI. Respiratory symptoms: Negative except as documented in HPI. Cardiovascular symptoms: Negative except as documented in HPI. Gastrointestinal symptoms: Negative except as documented in HPI. Genitourinary symptoms: Negative except as documented in HPI. Musculoskeletal symptoms: Negative except as documented in HPI. Neurologic symptoms: Negative except as documented in HPI. Psychiatric symptoms: Negative except as documented in HPI. Endocrine symptoms: Negative except as documented in HPI. [facility] PFSH: Medical History (Updated 08/07/23 @ 18:37 by Sarah Savage MD) Hyperkalemia Allergic dermatitis Dermatitis Herpes zoster Rhus dermatitis Post-COVID syndrome Atrial fibrillation Hypothyroid Mixed hyperlipidemia Anemia Fatigue Aortic aneurysm, intrathoracic Atypical chest pain H/O reduction of closed fracture right wrist Vitamin D deficiency Influenza vaccine needed Patient is higher risk for influenza and needs vaccine. Ventricular fibrillation Patient had an episode of ventricular fibrillation, immediately after the valve surgery. Has not had any recurrence. Cardiomyopathy LVEF was 45% in December 2018- improved from 25% in July of 2018 resolved as of 2020 Abnormal liver enzymes Etiology of the elevated liver enzyme is not clear. Patient has a history of alcohol abuse. Essential hypertension Congestive heart failure Diastolic heart failure Surgical History (Updated 06/01/23 @ 00:02 by POOL Nj) Hx of cardiac catheterization Presence of cardiac and vascular implant and graft, unspecified Continuous bus monitor implant History of aortic valve replacement H/O right wrist surgery Aortic valve replaced Family History Sister Cancer Diabetes Mother Stroke Hypertension CAD (coronary artery disease) Lung disease Denies family history of Clotting disorder Dementia Chronic kidney disease (CKD) Suicide Anesthesia complication Bleeding disorder Social History Smoking and tobacco/nicotine status: former use of tobacco/nicotine Alcohol intake: current Alcohol intake frequency: 3 or more drinks per day Alcohol type: beer Substance/Drug Use: unknown Marital status: Single Physical Exam Narrative: EXAM NARRATIVE: General: Alert, no acute distress. Skin: Warm, dry. Head: Normocephalic, large hematoma left forehead. Neck: Supple, trachea midline. Eye: Extraocular movements are intact. Ears, nose, mouth and throat: Tacky oral mucosa Cardiovascular: Regular, Normal peripheral perfusion. Respiratory: Lungs are clear to auscultation, respirations are non-labored, breath sounds are equal, Symmetrical chest wall expansion. Gastrointestinal: Soft, Nontender, Non distended, Normal bowel sounds. Musculoskeletal: Pain in left hip region with any movement. Some shortening and rotation. Neurological: Alert and oriented, No focal neurological deficit observed. Psychiatric: Cooperative, appropriate mood & affect. Course Vital Signs: Vital signs: Vital Signs Temperature 97.6 F 08/07/23 16:50 Respiratory Rate 18 08/07/23 16:50 Blood Pressure 117/79 08/07/23 17:44 Pulse Oximetry 96 08/07/23 17:44 Oxygen Delivery Me thod Nasal Cannula 08/07/23 17:44 Oxygen Flow Rate 2 08/07/23 17:44 MDM - Extremity (Nontraumatic) Medical Decision Making Medical decision making: Differential diagnosis including but not limited to and based on the above HPI, review of systems and physical exam: Concern for skull fracture or intracranial hemorrhage so CT of the head was ordered. Concern for fracture of the cervical spine with cervical pain. C-spine CT was ordered. Also a plain film of the patient's left femur was ordered to rule out fractures. Orders placed to evaluate differential diagnosis based on the above differential, HPI and physical exam CT head: The right falx there was concern for a meningioma but radiologist feels like and subarachnoid hemorrhage cannot be ruled out without an MRI., no evidence of infarct. no evidence of acute fracture.This was reviewed and interpreted by myself the ER physician. CT of the cervical spine: No fracture. Good alignment. No step-offs. This was reviewed and interpreted by myself the emergency room physician. I also reviewed the radiologist report. X-ray of the left femur. Patient has a left intertrochanteric fracture. This was reviewed and interpreted by myself the emergency room physician. Presurgical workup was initiated after read of the left femur films. Chest x-ray, EKG, lab work. Chest x-ray: Cardiomegaly, sternotomy wires, What appears to be some sort of implantable recorder. this was reviewed and interpreted by myself the ER physician. EKG: Time 1740 rate 62. Normal sinus rhythm, ST depression in the anterior lateral leads. No elevation. Patient is having no chest pain., no ectopy, first-degree AV block, This was reviewed and interpreted by myself the ER physician at 1745. This is unchanged from previous EKG. Also reviewed her recent echo. An EF of 50 to 55% at that time. Lab Review: Laboratory results were reviewed and interpreted by myself the emergency room physician. BUN and creatinine are 21.5. This is slightly up from previous which was 0.9. He does seem prone to acute renal insufficiency in the past. No leukocytosis. Platelets are little low at 150. I reviewed the patient's medical record. Reexamination: Patient remained stable. Continues have some pain in his left hip but this is fairly well-controlled. No altered mental status. No focal motor deficits. No nausea or vomiting. Consultation: I spoke with Dr. Madrigal with orthopedics who recommended admission and would see the patient in the morning. However patient is now being transferred. Consultation: I spoke with the hospitalist on-call. They felt that the likely meningioma was too risky to admit here without an MRI and they declined admission. I was unable to obtain an MRI tonight there is no staff who can run the MRI. Assessment and plan: Left intertrochanteric femur fracture Head injury Meningioma versus subarachnoid hemorrhage -Patient has now received 2 L normal saline bolus and his blood pressure is improved from the 70s up to about 120. I think he likely is fairly dehydrated. -Patient accepted to the emergency room at [facility] in [place]. Unable to perform an MRI here so hospitalist will not admit. -Dr. Cunningham at the emergency room and [facility] is accepting - Discussed findings and plan with patient. Answered any questions. - All laboratory values were reviewed and interpreted personally by myself, the ER physician - All imaging was reviewed and interpreted personally by myself, the ER physician. - Evaluation and treatment of this problem were appropriate in the emergency setting Lab Data 08/07/23 15:50 08/07/23 15:50 Radiology Impressions Femur X-Ray 08/07/23 16:53 IMPRESSION: Comminuted displaced left intertrochanteric femur fracture. Cervical Spine CT 08/07/23 16:54 IMPRESSION: No acute findings. Head CT 08/07/23 16:54 IMPRESSION: 1. 0.6 cm hyperdense oval lesion along the anterior superior right falx is most likely a meningioma. An acute subarachnoid hemorrhage is considered unlikely, but cannot be entirely excluded. Follow-up with brain MRI is recommended. 2. Left frontal scalp hematoma. ADDENDUM: 08/07/23 [id number] THIS REPORT CONTAINS FINDINGS THAT MAY BE CRITICAL TO PATIENT CARE. The findings were verbally communicated via telephone conference with SARAH SAVAGE at 5:32 PM CDT on 08/07/2023. The findings were acknowledged and understood. Chest X-Ray 08/07/23 17:21 IMPRESSION: 1. Cardiomegaly with possible mild interstitial edema in the upper lobes. Laboratory Results WBC 7.11 10^3/uL (3.29-11.43) 08/07/23 15:50 RBC 4.04 10^6/uL (3.85-5.65) 08/07/23 15:50 Hgb 12.30 g/dL (11.27-16.99) 08/07/23 15:50 Hct 37.6 % (37-53) 08/07/23 15:50 MCV 93.1 fl (82-101) 08/07/23 15:50 MCH 30.4 pg (27-33) 08/07/23 15:50 MCHC 32.7 g/dL (30-55) 08/07/23 15:50 RDW 14.7 % (12.1-15.1) 08/07/23 15:50 Plt Count 150 10^3/cmm (157-399) L 08/07/23 15:50 MPV 9.7 fL (7.4-10.4) 08/07/23 15:50 Neut % (Auto) 62.4 % 08/07/23 15:50 Lymph % (Auto) 23.3 % 08/07/23 15:50 Dyer % (Auto) 11.4 % 08/07/23 15:50 Eos % (Auto) 2.7 % 08/07/23 15:50 Baso % (Auto) 0.1 % 08/07/23 15:50 Neut # (Auto) 4.43 10^3/uL (1.8-7.7) 08/07/23 15:50 Lymph # (Auto) 1.7 10^3/uL (0.8-4.8) 08/07/23 15:50 Dyer # (Auto) 0.8 10^3/uL (0.2-0.9) 08/07/23 15:50 Eos # (Auto) 0.2 10^3/uL (0.0-0.8) 08/07/23 15:50 Baso # (Auto) 0.0 10^3/uL (0.0-0.1) 08/07/23 15:50 Nucleated RBC % (auto) 0 % 08/07/23 15:50 Nucleated RBCs # 0.0 /100WBC 08/07/23 15:50 Sodium 139 mmol/L (136-145) 08/07/23 15:50 Potassium 4.0 mmol/L (3.5-5.1) 08/07/23 15:50 Chloride 102 mmol/L (98-107) 08/07/23 15:50 Carbon Dioxide 23 mmol/L (22-29) 08/07/23 15:50 Anion Gap 18.0 (5-19) 08/07/23 15:50 BUN 20 mg/dL (8-23) 08/07/23 15:50 Creatinine 1.5 mg/dL (0.7-1.2) H 08/07/23 15:50 GFR Calculation 47.3 mL/min (90-130) L 08/07/23 15:50 Glucose 123 mg/dL (65-115) H 08/07/23 15:50 Calculated Osmolality 292 mOsm/kg (285-295) 08/07/23 15:50 Calcium 8.6 mg/dL (8.5-10.5) 08/07/23 15:50 Total Bilirubin 0.6 mg/dL (0.15-1.2) 08/07/23 15:50 AST 49 U/L (0-40) H 08/07/23 15:50 ALT 45 U/L (0-41) H 08/07/23 15:50 Alkaline Phosphatase 111 U/L (40-130) 08/07/23 15:50 Total Protein 7.1 g/dL (6.6-8.7) 08/07/23 15:50 Albumin 4.3 g/dL (3.5-5.2) 08/07/23 15:50 Globulin 2.8 g/dL (1.3-4.6) 08/07/23 15:50 All radiology interpretation(s) finalized by discharge Discharge Plan Discharge Patient Disposition: Xfer Short-Term Hosp Clinical Impression: Closed intertrochanteric fracture of left femur, Head injury, Dehydration, Acute renal insufficiency Condition: Stable Referrals: CARA Bob, JOSE DAVID [Primary Care Provider] - Coding Level of Care Code ED Corporate Traffic Manager for Joanne Spicer
--- NOTE | 2023-08-07 17:21 | XRR_ITS ---
PROCEDURE INFORMATION: Exam: XR Chest Exam date and time: 08/07/2023 5:25 PM Age: 63 years old Clinical indication: Screening exam; Pre-operative exam; Cardiovascular screening; Prior surgery; Surgery date: 6+ months; Surgery type: Open heart aortic valve loop recorder; Additional info: Pre-surgical evaluation TECHNIQUE: Imaging protocol: Radiologic exam of the chest. Views: 1 view. COMPARISON: CR XR chest 1V portable [id number] 05/29/2023 3:00 PM FINDINGS: Tubes, catheters and devices: Heart valve prosthesis. Lungs: Mild interstitial prominence in the upper lobes. No consolidation. Pleural spaces: Unremarkable. No pleural effusion. No pneumothorax. Heart/Mediastinum: Worsened cardiomegaly. Vasculature: Tortuous and possible aneurysmal descending thoracic aorta. Bones/joints: Sternotomy changes with chronic fractured wire. XR/XR chest 1V portable [id number] IMPRESSION: 1. Cardiomegaly with possible mild interstitial edema in the upper lobes.
--- NOTE | 2023-08-07 17:21 | ECG_ITS ---
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 Measurements Intervals [place] Rate: 62 P: 46 [place]: 234 QRS: -26 QRSD: 106 T: -58 QT: 447 QTc: 456 Interpretive Statements SINUS RHYTHM WITH FIRST DEGREE AV BLOCK BORDERLINE LEFT AXIS DEVIATION [QRS AXIS < -20] ST DEVIATION AND MODERATE T-WAVE ABNORMALITY, CONSIDER ANTEROLATERAL ISCHEMIA [-0.1+ mV T-WAVE IN V3-V6] ST DEVIATION AND MODERATE T-WAVE ABNORMALITY, CONSIDER INFERIOR ISCHEMIA [-0.1+ mV T-WAVE IN II/aVF] Compared to ECG 05/29/2023 17:38:40 First degree AV block now present T-wave abnormality still present Possible ischemia still present Electronically Signed On 08-08-2023 13:55:57 CDT by Soy Vicente M.D. [id number]
[2023-08-07 17:37] LABS: Basophils % 0.1 %; Eosinophils # 0.2 10^3/uL (0.0-0.8); Eosinophils % 2.7 %; Hematocrit 37.6 % (37-53); Lymphocytes # 1.7 10^3/uL (0.8-4.8); Lymphocytes % 23.3 %; Mean Corpuscular HGB Conc 32.7 g/dL (30-55); Mean Corpuscular Hemoglobin 30.4 pg (27-33); Mean Corpuscular Volume 93.1 fl (82-101); Mean Platelet Volume 9.7 fL (7.4-10.4); Monocytes # 0.8 10^3/uL (0.2-0.9); Monocytes % 11.4 %; Neutrophils # 4.43 10^3/uL (1.8-7.7); Neutrophils % 62.4 %; Nucleated Red Blood Cells % 0 %; Platelet Count 150 10^3/cmm (157-399); Red Blood Count 4.04 10^6/uL (3.85-5.65); Red Cell Distribution Width 14.7 % (12.1-15.1); White Blood Count 7.11 10^3/uL (3.29-11.43)
[2023-08-07] MEDS: sodium chloride 0.9% 1,000 ML 999 ML IV (17:43)
[2023-08-07 17:44] VITALS: BP 117/79; O2SAT 96
[2023-08-07 17:50] LABS: Alanine Aminotransferase 45 U/L (0-41); Albumin Level 4.3 g/dL (3.5-5.2); Alkaline Phosphatase 111 U/L (40-130); Aspartate Amino Transferase 49 U/L (0-40); Blood Urea Nitrogen 20 mg/dL (8-23); Calcium 8.6 mg/dL (8.5-10.5); Carbon Dioxide 23 mmol/L (22-29); Chloride 102 mmol/L (98-107); Globulin 2.8 g/dL (1.3-4.6); Glomerular Filtration Rate 47.3 mL/min (90-130); Glucose 123 mg/dL (65-115); Osmolality Calculated 292 mOsm/kg (285-295); Sodium 139 mmol/L (136-145); Total Bilirubin 0.6 mg/dL (0.15-1.2); Total Protein 7.1 g/dL (6.6-8.7)
[2023-08-07 18:38] LABS: INR 1.06 (0.8-1.2)
[2023-08-07 18:39] LABS: Partial Thromboplastin Time 25.6 SECONDS (23.9-36.7)
[2023-08-07 18:41] VITALS: BP 133/67; PULSE 76; O2SAT 97
--- NOTE | 2023-08-07 19:00 | PC.NURSE ---
Assumed care from Malina NICE.
--- NOTE | 2023-08-07 19:00 | PC.NURSE ---
This nurse was informed at shift change that patient report was called to Aris Carpenter for transfer of patient by [facility] nurse Malina RN.
[2023-08-07 19:29] VITALS: BP 109/78; PULSE 67; RESP 16; O2SAT 97
[2023-08-07 20:21] VITALS: RESP 18
[2023-08-07] MEDS: HYDROmorphone 1 mg/mL INJ 1 mL IVP (20:21)
--- NOTE | 2023-08-07 20:27 | PC.NURSE ---
Bedside report given to [facility]; all questions and concerns were addressed at time of report.
== END 2023-08-07 20:30 | disposition short-term general hospital (02) ==
PROVIDERS: Emergency Provider Emergency Medicine; PCP Nurse Practitioner Family
DX: S72.142A Displaced intertrochanteric fracture of left femur, initial encounter for closed fracture (principal); E86.0 Dehydration; N28.9 Disorder of kidney and ureter, unspecified; S00.83XA Contusion of other part of head, initial encounter; Z87.891 Personal history of nicotine dependence; E78.2 Mixed hyperlipidemia; I11.0 Hypertensive heart disease with heart failure; I50.9 Heart failure, unspecified; I43 Cardiomyopathy in diseases classified elsewhere; W07.XXXA Fall from chair, initial encounter; I44.0 Atrioventricular block, first degree
CPT/HCPCS: 36415; 70450; 71045; 72125; 73552; 80053; 85025; 85610; 85730; 86850; 86900; 93005; 96361; 96374; 99285; J1170; J7030

== ENCOUNTER → 2023-11-05 11:11 | Outpatient (BNVA) | payer MEDICARE, MEDICAID, SELFPAY | PROVIDERS: PCP Nurse Practitioner Family; Visit Provider Nurse Practitioner Family | DX: I71.20 Thoracic aortic aneurysm, without rupture, unspecified (principal); I10 Essential (primary) hypertension; Z95.2 Presence of prosthetic heart valve; F17.200 Nicotine dependence, unspecified, uncomplicated | CPT/HCPCS: 99214 ==

== ENCOUNTER → 2023-11-06 14:48 | Outpatient (BNVA) | payer MEDICARE, MEDICAID, SELFPAY | PROVIDERS: PCP Nurse Practitioner Family; Visit Provider Nurse Practitioner Family | DX: R53.83 Other fatigue (principal); I10 Essential (primary) hypertension | CPT/HCPCS: 80053; 80074; 85025 ==

== ENCOUNTER 2023-11-13 08:08 | Outpatient (CLI) | payer MEDICARE, MEDICAID, SELFPAY ==
--- NOTE | 2023-11-13 08:00 | CTR_ITS ---
PROCEDURE INFORMATION: Exam: CT Chest Without Contrast; Diagnostic Exam date and time: 11/13/2023 8:24 AM Age: 63 years old Clinical indication: Cardiovascular condition or disease; Aortic aneurysm; Without rupture; Prior surgery; Surgery date: 6+ months; Surgery type: Open heart, aortic valve, loop recorder; Additional info: Ascending aortic aneurysm TECHNIQUE: Imaging protocol: Diagnostic computed tomography of the chest without contrast. Radiation optimization: All CT scans at this facility use at least one of these dose optimization techniques: automated exposure control; mA and/or kV adjustment per patient size (includes targeted exams where dose is matched to clinical indication); or iterative reconstruction. COMPARISON: CT angio chest [id number] 09/04/2019 10:24 AM RADIATION DOSE METRICS: Total DLP (mGy-cm): 384.07 FINDINGS: Tubes, catheters and devices: There is a loop recorder in the subcutaneous fat of the left upper chest. Lungs: Bilateral upper lobe pulmonary fibrotic strandy changes. Lungs are otherwise clear. Pleural spaces: Unremarkable. No pneumothorax. No pleural effusion. Heart: Status post aortic valve replacement. Mild cardiomegaly. There is extensive calcified coronary artery disease. Lymph nodes: Unremarkable. No enlarged lymph nodes. Vasculature: Mild aneurysmal dilatation of the mid ascending thoracic aorta which measures about 4.5 cm in diameter (4.2 cm on the August 2019 exam). Bones/joints: Previous median sternotomy. No acute osseous lesions. Soft tissues: Bilateral gynecomastia. CT/CT chest wo con [id number] IMPRESSION: 1. The mid ascending thoracic aortic aneurysm now measures 4.5 cm (previously 4.2 cm in the August 2019 exam). 2. Mild fibrotic stranding in the upper lung zones. 3. Extensive calcified coronary artery disease.
== END 2023-11-13 08:09 | disposition home or self-care (01) ==
PROVIDERS: PCP Nurse Practitioner Family; Visit Provider Nurse Practitioner Family
DX: I71.20 Thoracic aortic aneurysm, without rupture, unspecified (principal); Z95.4 Presence of other heart-valve replacement; J84.10 Pulmonary fibrosis, unspecified; I25.84 Coronary atherosclerosis due to calcified coronary lesion
CPT/HCPCS: 71250; 99214